=== PATIENT | female | born 1980 | race Caucasian/White ===

== ENCOUNTER 2019-11-22 17:59 | Observation (INO) | payer OTHER, SELFPAY ==
--- NOTE | ~2019-11-22 | CT_ITS ---
EXAMINATION: CT abdomen pelvis w con INDICATION: Right lower quadrant abdominal pain, prior hysterectomy for endometriosis TECHNIQUE: Computed tomographic images of the abdomen and pelvis were obtained after the administrati on of 100 cc of Omnipaque 350 intravenous contrast. The dose-length product (DLP) was 510.99 mGy-cm. Automated exposure control and iterative reconstruction technique were employed. COMPARISON: 01/28/2015 FINDINGS: The lung bases are clear. The heart size is normal. Punctate calcifications in an otherwise normal spleen likely represent healed granulomatous disease. The liver, pancreas, gallbladder, and a drenal glands are normal. There is chronic severe atrophy of the right kidney with severe right hydro ureteronephrosis which continues to the level of the right adnexa. There is moderate left hydroureter onephrosis which continues to the level of the left adnexa. There is mild distention of the urinary b ladder. There is a 4.8 x 4.1 cm heterogeneous soft tissue density mass in the pelvis at the hysterect del site. The distended ureters are contiguous with the lateral aspects of the soft tissue density ma ss. An approximately 2.5 x 2.3 cm soft tissue density is seen in the right adnexa adjacent to calcifi cation or suture material. There is mild enlargement of the appendix, which measures up to 8 mm, with out significant periappendiceal fat stranding. A 1.4 x 0.7 cm soft tissue density is seen along the r ight pericolic gutter on image 115. No pathologically enlarged abdominal or pelvic lymph nodes are id entified. There is no free intraperitoneal gas or evidence of bowel obstruction. IMPRESSION: 1. Soft tissue density mass of the pelvis and adnexa at the site of prior hysterectomy suspicious for endometriosis. 2. Bilateral hydroureteronephrosis, severe on the right and moderate on the left, continuing to the l evel of the pelvic mass, concerning for involvement by the pelvic mass. Surgical consultation is raul mmended. 3. Mild enlargement of the appendix without significant periappendiceal fat stranding. Acute appendic itis is considered less likely. These findings and recommendations were discussed with Dr. Tosha sugn MD in the Emergency Department at 2322 hours on 11/22/2019. 4. Small soft tissue deposit along the right pericolic gutter which could also reflect endometriosis if the pelvic mass proves to be endometriosis. Reviewed, dictated and finalized at location A. IMPRESSION: 1. Soft tissue density mass of the pelvis and adnexa at the site of prior hyste rectomy suspicious for endometriosis. 2. Bilateral hydroureteronephrosis, severe on the right and moderate on the lef t, continuing to the level of the pelvic mass, concerning for involvement by th e pelvic mass. Surgical consultation is recommended. 3. Mild enlargement of the appendix without significant periappendiceal fat str anding. Acute appendicitis is considered less likely. These findings and recomm endations were discussed with Dr. Tosha Dahl MD in the Emergency Department at 2322 hours on 11/22/2019. 4. Small soft tissue deposit along the right pericolic gutter which could also reflect endometriosis if the pelvic mass proves to be endometriosis.
--- NOTE | ~2019-11-22 | US_ITS ---
EXAMINATION: US pelvic complete w TV DATE: 11/23/2019 16:22 INDICATION: Pelvic pain, vaginal bleeding, pelvic mass on CT, history of hysterectomy and bilateral o ophorectomy for endometriosis TECHNIQUE: Multiple transabdominal and endovaginal sonographic images of the pelvis were obtained. COMPARISON: CT from yesterday FINDINGS: The uterus and ovaries are surgically absent. There is a 6.2 x 5.1 x 5.2 cm hypoechoic mass in association with the vaginal cuff. A 3.4 x 3.9 x 2.6 cm heterogeneous mass is seen in the right a dnexa corresponding to the adnexal finding on CT. There is increased vascularity in the masses. As se en on CT, the ureters appear to course into the adnexa and abruptly cut off. There is no free fluid i n the pelvis. IMPRESSION: 1. Pelvic and right adnexal masses as seen on CT, concerning for endometriosis. Reviewed, dictated and finalized at location A.
--- NOTE | ~2019-11-22 | NM_ITS ---
EXAMINATION: YAIMA starkey renal scan DATE: 11/24/2019 12:20 INDICATION: Assess bilateral renal function. TECHNIQUE: 8 mCi Tc-99m MAG3 was administered IV. 40 mg furosemide was administered IV immediately a fterward. The patient was scanned in the supine position. A posterior abdominal radionuclide angiogra m was obtained. A subsequent time course of static images of the kidneys, ureters, and bladder was ob tained. COMPARISON: None FINDINGS: The posterior abdominal radionuclide angiogram and sequential static images show normal size, positio n, and morphology of the left kidney. Atrophic small right kidney. Peak renal parenchymal uptake was 2.5 min in left kidney and 1 min in right kidney (normal peak 3-5 minutes). The relative early renal uptake was 4% on the right and 66% on the left (<40% is abnormal). No abnormalities of the ureters or bladder are seen. T1/2 for clearance of activity from the left kidney and proximal collecting system was 9 minutes. No evident clearance of activity from the right kidney with essentially flat activity curve throughou t the entire 30 minutes of the study. No evident accumulation of activity at the right renal pelvis Notes on interpretation: T1/2 <10 minutes is normal, 10-15 minutes is low grade obstruction of questi onable clinical significance, 15-20 minutes is partial obstruction that is likely clinically signific ant, >20 minutes is high grade obstruction. Note that false positives may be seen with supine positio rohith, dehydration, severely dilated nonobstructed kidney, atonic collecting system, poor renal functi on, and chronic furosemide use. IMPRESSION: 1. Severely atrophic right kidney which only contributes 4% of total renal function. Assessment for severity of obstruction is nondiagnostic due to the negligible renal uptake. 2. Normal-appearing left kidney which comprises 96% of total renal function with no delay in activity clearance to suggest significant obstruction. Reviewed, dictated and finalized at location A. IMPRESSION: 1. Severely atrophic right kidney which only contributes 4% of total renal fun ction. Assessment for severity of obstruction is nondiagnostic due to the negli gible renal uptake. 2. Normal-appearing left kidney which comprises 96% of total renal function wit h no delay in activity clearance to suggest significant obstruction.
[2019-11-22 19:20] VITALS: BP 145/90; PULSE 80; RESP 16; TEMP 37.1; O2SAT 100
[2019-11-22 19:44] LABS: Basophils Percent Auto 0.2 % (0.2-1.2); Eosinophils Absolute Auto 0.1 K/mm3 (0-0.3); Eosinophils Percent Auto 0.9 % (0-4.4); Hematocrit 44.3 % (37.0-47.0); Hemoglobin 14.9 g/dL (12.0-15.0); Immature Granulocyte Absolute 0.06 K/mm3 (0.00-0.031); Immature Granulocyte Percent A 0.4 % (0-0.5); Lymphocytes Absolute Auto 1.72 K/mm3 (0.9-3.2); Mean Corpuscular HGB Conc 33.6 g/dl (32-36); Mean Corpuscular Hemoglobin 30.9 pg (26-34); Mean Corpuscular Volume 91.9 fl (80-100); Mean Platelet Volume 10.1 fl (7.4-10.4); Monocytes Absolute Auto 0.5 K/mm3 (0.1-0.6); Monocytes Percent Auto 3.8 % (2.6-8.5); Neutrophils Absolute Auto 11.9 K/mm3 (1.3-6.7); Neutrophils Percent Auto 82.7 % (45.5-73.1); Platelet Count Result 326 k/mm3 (150-375); Red Blood Count 4.82 M/mm3 (4.2-5.4); Red Cell Distribution Width 12.6 % (11.5-14.5); White Blood Count 14.4 K/mm3 (4.5-10.0)
[2019-11-22 19:48] LABS: Add Urine Microscopic? YES; Appearance Urine Clear (Clear); Bilirubin Urine Negative (Negative); Blood Urine 1+ (Negative); Color Urine Straw (Yellow); Glucose Urine UA Negative (Negative); Ketones Urine Negative (Negative); Leukocyte Esterase Ur Negative LEU/UL (Negative); Mucus Urine Rare /lpf; Nitrate Urine Negative (Negative); Protein Urine 1+ mg/dL (Negative); Specific Grav Ur 1.011 (1.001-1.035); Squamous Epithelial Cell Urine Rare /hpf (Few); Urobilinogen Urine Negative mg/dL (<2.0); WBC Urine 0-3 /hpf
[2019-11-22 20:12] LABS: Alanine Aminotransferase 17 U/L (4-35); Albumin Level 4.3 g/dL (3.5-5.1); Alkaline Phosphatase 88 U/L (38-126); Aspartate Amino Transferase 25 U/L (14-36); Bilirubin,Total 0.3 mg/dL (0.2-1.3); Blood Urea Nitrogen 13 mg/dL (7-17); Calcium 8.9 mg/dL (8.4-10.2); Carbon Dioxide 26 mmol/L (22-30); Chloride 102 mmol/L (98-107); Estimated CRCL calculation 45 ml/min; Estimated Glomerular Filt Rate 39; Glucose 98 mg/dL (65-105); Lipase 133 U/L (23-300); Potassium 4.6 mmol/L (3.4-5.0); Sodium 137 mmol/L (137-145)
[2019-11-22 22:18] VITALS: BP 145/103; PULSE 83; RESP 16; TEMP 36.6; O2SAT 99
--- NOTE | 2019-11-22 22:33 | ED.GENADULT ---
HPI - General Adult General Chief complaint: Abdominal Pain Stated complaint: ABD PAIN Time Seen by Provider: 11/22/19 22:19 History of Present Illness HPI narrative: Patient is a 39 y/o female complaining of right lower abdominal pain radiating to back pain since yesterday. She states that her pain is sharp and rates it as 6/10. There is no alleviating or exacerbating factor. She has some nausea. She has no dysuria, vomiting or diarrhea. Of note, she had hysterectomy and bilateral oophorectomy in 2007 for endometriosis. Related Data Home Medications Medication Instructions Recorded Confirmed atomoxetine 100 mg PO DAILY 11/23/19 11/23/19 bupropion HCl 150 mg PO DAILY 11/23/19 11/23/19 estrogens-methyltestosterone 1 tablet PO DAILY 11/23/19 11/23/19 isotretinoin, micronized [Absorica 8 mg PO DAILY 11/23/19 11/23/19 LD] lisinopril 40 mg PO DAILY 11/23/19 11/23/19 Allergies Allergy/AdvReac Type Severity Reaction Status Date / Time codeine Allergy Unknown Verified 10/12/12 10:26 Sulfa (Sulfonamide Allergy Unknown Verified 10/12/12 10:26 Antibiotics) sulfanilamide Allergy Unknown Verified 11/08/09 10:04 Review of Systems Constitutional: Constitutional: Denies chills, Denies fever(s), Denies headache(s) and Denies weakness Eyes: Eyes: Denies blurry vision ENT: Denies headache(s) and Denies neck pain Cardiovascular: Cardiovascular: Denies chest pain and Denies dyspnea Respiratory: Respiratory: Denies cough and Denies dyspnea Gastrointestinal: Gastrointestinal: Reports abdominal pain, Denies diarrhea, Reports nausea and Denies vomiting Genitourinary: Genitourinary: Denies hematuria and Denies dysuria Musculoskeletal: Musculoskeletal: Denies back pain and Denies neck pain Neurologic: Denies headache(s) and Denies weakness [facility] Past Medical History Medical History (Updated 11/23/19 @ 06:50 by Tosha Dahl MD) Endometriosis Surgical History Surgical History (Updated 11/23/19 @ 06:49 by Tosha Dahl MD) History of hysterectomy Family History Family History (Updated 11/23/19 @ 00:34 by Channing Aguillon RN) Father Hypertension Mother Family history of malignant neoplasm Diabetes mellitus Multiple myeloma Hypertension TIA (transient ischemic attack) Grandparent Family history of lung cancer Family history of heart disease in male family member before age 55 Social History Social History Smoking status: Never smoker Smoking end date: 06/02/99 Alcohol intake: never Substance use: current Substance use type: marijuana Last use: 11/22/19 1600 Gender identity (if verbalized by the patient): Female Spiritual care concerns: No Exam Const: Orientation/consciousness: oriented to person, oriented to place, oriented to time and patient oriented x3 Neuro: General: oriented to person, oriented to place, oriented to time and patient oriented x3 Cranial nerves: Yes CN's II-XII intact bilaterally Cognition (Neuro): normal cognition Speech: normal speech Motor exam (neuro): 5/5 motor strength present throughout Sensory Exam: normal sensation Coordination: [id number] test normal and [id number] test normal Course Consultations Consultation #1: Discussed with Dr. Morales ([facility] Support Specialist), who agrees to admit. Date: 11/22/19 Time: 23:30 Vital Signs Vital signs: Vital Signs Temperature 37.1 C 11/22/19 19:20 Pulse Rate 80 11/22/19 19:20 Respiratory Rate 16 11/22/19 19:20 Blood Pressure 145/90 H 11/22/19 19:20 Pulse Oximetry 100 11/22/19 19:20 Temperature 36.9 C 11/23/19 05:00 Pulse Rate 81 11/23/19 05:00 Respiratory Rate 16 11/23/19 05:00 Blood Pressure 144/102 H 11/23/19 05:00 Pulse Oximetry 98 11/23/19 05:00 Medical Decision Making Vital Signs Vital Signs: Vital Signs Temperature 37.1 C 11/22/19 19:20 Pulse Rate 80 11/22/19 19:20 Respiratory Rate 16 11/22/19 19:2
[2019-11-22] MEDS: KETOROLAC 30 MG/ML VIAL (*BKC) IV PUSH (23:02)
[2019-11-22 23:32] VITALS: TEMP 36.8
[2019-11-22 23:50] VITALS: BP 147/97; PULSE 79; RESP 18; TEMP 36.8; O2SAT 100
[2019-11-23 00:15] VITALS: BP 157/99; PULSE 84; RESP 16; TEMP 36.8; O2SAT 99; BMI 24.9
--- NOTE | 2019-11-23 00:32 | ADMGEN ---
This patient, Jessica Hernandez, was admitted to 3 [facility] Surg Room 302-01. Patient/family oriented to hospital policies and general routines including ID bracelet, bed and alarms, visiting hours, pain management, procedures, bathroom and other care routines, personal items, smoking policy, room service/diet, and visiting hours. Valuables list has been completed. Information on how to activate the Rapid Response Team has been discussed. Patient/Family are encouraged to report perceived risks to care and to ask questions if they do not understand what they are told or what they should do.
[2019-11-23] MEDS: SODIUM CHLORIDE 0.9% IV 1,000 ML 125 ML IV CONT ×3 (00:43→16:52)
[2019-11-23] MEDS: KETOROLAC 15 MG/ML VIAL (*BKC) IV PUSH ×3 (04:44→18:16)
[2019-11-23 05:00] VITALS: BP 144/102; PULSE 81; RESP 16; TEMP 36.9; O2SAT 98
[2019-11-23 06:32] LABS: Basophils Percent Auto 0.3 % (0.2-1.2); Eosinophils Absolute Auto 0.3 K/mm3 (0-0.3); Eosinophils Percent Auto 2.1 % (0-4.4); Hematocrit 41.2 % (37.0-47.0); Hemoglobin 13.9 g/dL (12.0-15.0); Immature Granulocyte Absolute 0.04 K/mm3 (0.00-0.031); Immature Granulocyte Percent A 0.3 % (0-0.5); Lymphocytes Absolute Auto 2.12 K/mm3 (0.9-3.2); Mean Corpuscular HGB Conc 33.7 g/dl (32-36); Mean Corpuscular Hemoglobin 30.7 pg (26-34); Mean Corpuscular Volume 90.9 fl (80-100); Mean Platelet Volume 10.1 fl (7.4-10.4); Monocytes Absolute Auto 0.8 K/mm3 (0.1-0.6); Monocytes Percent Auto 6.5 % (2.6-8.5); Neutrophils Absolute Auto 8.5 K/mm3 (1.3-6.7); Neutrophils Percent Auto 72.8 % (45.5-73.1); Platelet Count Result 267 k/mm3 (150-375); Red Blood Count 4.53 M/mm3 (4.2-5.4); Red Cell Distribution Width 12.5 % (11.5-14.5); White Blood Count 11.8 K/mm3 (4.5-10.0)
--- NOTE | 2019-11-23 07:35 | PM.IMHP ---
H&P: HPI History of Present Illness Chief complaint: pelvic pain, hydroephrosis Narrative: Jessica Hernandez is a 39 year old female Admitted through the emergency department complaining of several days right lower quadrant pelvic pain. significantly she has a history of hysterectomy and bilateral salpingo-oophorectomy approximately 12 years ago. She has been on hormone replacement. She has had recurrent UTIs and has had stents placed in the past. CT scan shows some small mass in the pelvis near the ureter with hydronephrosis on the right and minimal hydronephrosis on the left. Her white count is mildly elevated although she is afebrile. She is admitted to deal with this pain and workup these masses I have ordered ultrasound and have made a consult with Urology for possible placement of stents. Review of Systems Review of Systems: All systems reviewed & are unremarkable except as noted in HPI and below PMFSH Past Medical History Medical History Endometriosis Surgical History Surgical History History of hysterectomy Family History Family History Father Hypertension Mother Family history of malignant neoplasm Diabetes mellitus Multiple myeloma Hypertension TIA (transient ischemic attack) Grandparent Family history of lung cancer Family history of heart disease in male family member before age 55 Social History Social History Smoking status: Never smoker Smoking end date: 06/02/99 Alcohol intake: never Substance use: current Substance use type: marijuana Last use: 11/22/19 1600 Gender identity (if verbalized by the patient): Female Spiritual care concerns: No Meds Home Medications and Allergies Home Medications Medication Instructions Recorded Confirmed Type atomoxetine 100 mg PO DAILY 11/23/19 11/23/19 History bupropion HCl 150 mg PO DAILY 11/23/19 11/23/19 History estrogens-methyltestosterone 1 tablet PO DAILY 11/23/19 11/23/19 History isotretinoin, micronized [Absorica 8 mg PO DAILY 11/23/19 11/23/19 History LD] lisinopril 40 mg PO DAILY 11/23/19 11/23/19 History Allergies Allergy/AdvReac Type Severity Reaction Status Date / Time codeine Allergy Unknown Verified 10/12/12 10:26 Sulfa (Sulfonamide Allergy Unknown Verified 10/12/12 10:26 Antibiotics) sulfanilamide Allergy Unknown Verified 11/08/09 10:04 Vital Signs Vital Signs - 24 hr 11/22/19 19:20 11/22/19 22:18 11/22/19 23:32 Temperature 98.7 F 97.8 F 98.2 F Pulse Rate 80 83 Respiratory Rate 16 16 Blood Pressure 145/90 H 145/103 H Pulse Oximetry 100 99 11/22/19 23:50 11/23/19 00:15 11/23/19 05:00 Temperature 98.2 F 98.2 F 98.5 F Pulse Rate 79 84 81 Respiratory Rate 18 16 16 Blood Pressure 147/97 H 157/99 H 144/102 H Pulse Oximetry 100 99 98 Exam Const: General: no acute distress Eyes: General: appearance normal, both eyes and all related structures Neck: Neck: supple and no JVD Thyroid: thyroid normal Resp: Effort & Inspection: normal respiratory effort Auscultation: clear to auscultation bilaterally Cardio: Rate: regular rate Rhythm: regular rhythm GI: GI Palp: Yes abdominal tenderness Auscultation: normal bowel sounds Rectal Exam: deferred : External Female Exam: normal external appearance Speculum Exam - Cervix: Cervix absent Bimanual exam- vagina & uterus: uterus absent Bimanual Exam- Adnexa, other: tender bilaterally Skin: General skin exam: no rashes or lesions noted Extrem: General: normal to inspection and no edema Psych: Mental Status: mental status grossly normal Affect: normal affect H&P: Results Labs Labs: Short CBC 11/22/19 11/23/19 Range/Units 19:27 05:52 WBC 14.4 H 11.8 H (4.5-10.0) K/mm3 Hgb 14.9 13.9 (12.0-
--- NOTE | 2019-11-23 07:39 | PM.IMHP ---
H&P: HPI History of Present Illness Chief complaint: pelvic pain, hydroephrosis Narrative: Jessica Hernandez is a [address] [facility] Past Medical History Medical History (Updated 11/24/19 @ 17:43 by Arthur Mcfadden MD) Anxiety Attention deficit disorder Endometriosis HTN (hypertension) Surgical History Surgical History History of hysterectomy Family History Family History Father Hypertension Mother Family history of malignant neoplasm Diabetes mellitus Multiple myeloma Hypertension TIA (transient ischemic attack) Grandparent Family history of lung cancer Family history of heart disease in male family member before age 55 Social History Social History Smoking status: Never smoker Smoking end date: 06/02/99 Alcohol intake: never Substance use: current Substance use type: marijuana Last use: 11/22/19 1600 Gender identity (if verbalized by the patient): Female Spiritual care concerns: No Meds Home Medications and Allergies Home Medications Medication Instructions Recorded Confirmed Type atomoxetine 100 mg PO DAILY 11/23/19 11/23/19 History bupropion HCl 150 mg PO DAILY 11/23/19 11/23/19 History estrogens-methyltestosterone 1 tablet PO DAILY 11/23/19 11/23/19 History isotretinoin, micronized [Absorica 8 mg PO DAILY 11/23/19 11/23/19 History LD] lisinopril 40 mg PO DAILY 11/23/19 11/23/19 History Allergies Allergy/AdvReac Type Severity Reaction Status Date / Time codeine Allergy Unknown Verified 10/12/12 10:26 Sulfa (Sulfonamide Allergy Unknown Verified 10/12/12 10:26 Antibiotics) sulfanilamide Allergy Unknown Verified 11/08/09 10:04 Vital Signs Vital Signs - 24 hr 11/22/19 19:20 11/22/19 22:18 11/22/19 23:32 Temperature 98.7 F 97.8 F 98.2 F Pulse Rate 80 83 Respiratory Rate 16 16 Blood Pressure 145/90 H 145/103 H Pulse Oximetry 100 99 11/22/19 23:50 11/23/19 00:15 11/23/19 05:00 Temperature 98.2 F 98.2 F 98.5 F Pulse Rate 79 84 81 Respiratory Rate 18 16 16 Blood Pressure 147/97 H 157/99 H 144/102 H Pulse Oximetry 100 99 98 H&P: Results Labs Labs: Short CBC 11/22/19 11/23/19 Range/Units 19:27 05:52 WBC 14.4 H 11.8 H (4.5-10.0) K/mm3 Hgb 14.9 13.9 (12.0-15.0) g/dL Hct 44.3 41.2 (37.0-47.0) % Plt Count 326 267 (150-375) k/mm3 BMP 11/22/19 19:27 Sodium 137 Potassium 4.6 Chloride 102 Carbon Dioxide 26 BUN 13 Creatinine 1.50 H Glucose 98 Calcium 8.9 Liver Function 11/22/19 Range/Units 19:27 Total Bilirubin 0.3 (0.2-1.3) mg/dL AST 25 (14-36) U/L ALT 17 (4-35) U/L Alkaline Phosphatase 88 (38-126) U/L Albumin 4.3 (3.5-5.1) g/dL Urine 11/22/19 Range/Units 19:27 Urine Color Straw (Yellow) Urine Appearance Clear (Clear) Urine pH 6.0 (5.0-9.0) Ur Specific [place] 1.011 (1.001-1.035) Urine Protein 1+ H (Negative) mg/dL Urine Glucose (UA) Negative (Negative) mg/dL
--- NOTE | 2019-11-23 13:04 | WPDURCON ---
Assessment and Plan Assessment and plan (1) Hydronephrosis: Qualifiers: Hydronephrosis type: unspecified Qualified Code(s): N13.30 - Unspecified hydronephrosis Code(s): N13.30 - Unspecified hydronephrosis Status: Acute Assessment and Plan: Obtain Consent: Cystoscopy, bilateral retrograde pyelogram, bilateral ureteral stents will be placed tomorrow by Dr. Jorgito Guerra at 4:30pm in the OR. Keep NPO after midnight. Likely related to endometriosis. (2) Microhematuria: Code(s): R31.29 - Other microscopic hematuria Status: Acute Assessment and Plan: Patient is on Ceftriaxone, therefore a culture would likely be negative, but will send one to ensure this is not a UTI and that she is on correct antibiotics if so. Urology Consult Note HPI Date Seen: 11/23/19 Requesting Physician: Larry Morales MD Primary Care Provider: PHYSICIAN NOT ON STAFF Consult Narrative Narrative: Jessica Hernandez is a 39 year old female who was admitted through the ER for worsening right lower quadrant pain that started on Friday. She has a WBC 11.8 down from 14.4, creatinine is 1.50, UA shows 1+ blood, but no urine culture was done. She had a total hysterectomy 12 years ago and has been on hormonal replacement. She is also noted to have chronic UTI's and previous stent placement with Dr. Ronquillo. CT scan with contrast was done showing a soft tissue mass of pelvis at the site of her prior hysterectomy suspicious for endometriosis, bilateral hydronephrosis, sever on the right and moderate on the left contributing to pelvic mass concerning for involvement by pelvic mass. She also states she had some minor gross hematuria, vaginal bleeding, flank pain worse on the right and pelvic pain. Review of Systems Cardiovascular: Cardiovascular: Denies chest pain Respiratory: Respiratory: Reports no additional respiratory complaints Gastrointestinal: Gastrointestinal: Reports abdominal pain, Reports nausea and Denies vomiting Genitourinary: Genitourinary: Reports abnormal vaginal bleeding, Reports hot flashes, Denies dysuria, Reports pelvic pain, Reports flank pain and Denies urinary urgency PMFSH Past Medical History Medical History Endometriosis Surgical History Surgical History History of hysterectomy Family History Family History Father Hypertension Mother Family history of malignant neoplasm Diabetes mellitus Multiple myeloma Hypertension TIA (transient ischemic attack) Grandparent Family history of lung cancer Family history of heart disease in male family member before age 55 Social History Social History Smoking status: Never smoker Smoking end date: 06/02/99 Alcohol intake: never Substance use: current Substance use type: marijuana Last use: 11/22/19 1600 Gender identity (if verbalized by the patient): Female Spiritual care concerns: No Meds Home Medications and Allergies Home Medications Medication Instructions Recorded Confirmed Type atomoxetine 100 mg PO DAILY 11/23/19 11/23/19 History bupropion HCl 150 mg PO DAILY 11/23/19 11/23/19 History estrogens-methyltestosterone 1 tablet PO DAILY 11/23/19 11/23/19 History isotretinoin, micronized [Absorica 8 mg PO DAILY 11/23/19 11/23/19 History LD] lisinopril 40 mg PO DAILY 11/23/19 11/23/19 History Allergies Allergy/AdvReac Type Severity Reaction Status Date / Time codeine Allergy Unknown Verified 10/12/12 10:26 Sulfa (Sulfonamide Allergy Unknown Verified 10/12/12 10:26 Antibiotics) sulfanilamide Allergy Unknown Verified 11/08/09 10:04 Vital Signs Vital Signs - 24 hr 11/22/19 19:20 11/22/19 22:18 11/22/19 23:32 Temperature 98.7 F 97.8 F 98.2 F Pulse Rate
[2019-11-23 14:00] VITALS: BP 141/93; PULSE 60; RESP 16; TEMP 36.5; O2SAT 97
[2019-11-23 22:00] VITALS: BP 147/88; PULSE 100; RESP 18; TEMP 36.8; O2SAT 98
[2019-11-24] MEDS: SODIUM CHLORIDE 0.9% IV 1,000 ML 125 ML IV CONT ×3 (00:53→20:46)
[2019-11-24] MEDS: FUROSEMIDE INJ 40 MG/4 ML VIAL IV PUSH ×2 (00:57→11:04)
[2019-11-24] MEDS: KETOROLAC 15 MG/ML VIAL (*BKC) IV PUSH ×2 (02:32→18:36)
[2019-11-24 06:00] VITALS: BP 129/88; PULSE 63; RESP 16; TEMP 36.7; O2SAT 94
--- NOTE | 2019-11-24 09:27 | WPDANESEPPF ---
Anes - Initial Pre Proc Eval Procedure: Operation Date: 11/24/19 16:00 Proposed Procedures p Cystoscopy, Bilateral Retrogrde Pyelogram, Bilateral Stent Placement - Jorgito Guerra MD Date/Time: 11/24/19 09:27 Surgeon: Larry Morales MD Pre Op Diagnosis: pelvic pain, hydroephrosis Patient Data Age: 39 Gender: F Height: 1.7 m Weight: 72.2 kg Last Vital Signs Temp 36.7 C 11/24/19 06:00 Pulse 63 11/24/19 06:00 Resp 16 11/24/19 06:00 BP 129/88 11/24/19 06:00 Pulse Ox 94 11/24/19 06:00 Allergies Allergy/AdvReac Type Severity Reaction Status Date / Time codeine Allergy Unknown Verified 10/12/12 10:26 Sulfa (Sulfonamide Allergy Unknown Verified 10/12/12 10:26 Antibiotics) sulfanilamide Allergy Unknown Verified 11/08/09 10:04 Home Medications Medication Instructions Recorded Confirmed Type atomoxetine 100 mg PO DAILY 11/23/19 11/23/19 History bupropion HCl 150 mg PO DAILY 11/23/19 11/23/19 History estrogens-methyltestosterone 1 tablet PO DAILY 11/23/19 11/23/19 History isotretinoin, micronized [Absorica 8 mg PO DAILY 11/23/19 11/23/19 History LD] lisinopril 40 mg PO DAILY 11/23/19 11/23/19 History PMFSH Past Medical History Medical History (Updated 11/24/19 @ 09:28 by Mirza Ohara MD) Anxiety Attention deficit disorder Endometriosis HTN (hypertension) Surgical History Surgical History History of hysterectomy Family History Family History Father Hypertension Mother Family history of malignant neoplasm Diabetes mellitus Multiple myeloma Hypertension TIA (transient ischemic attack) Grandparent Family history of lung cancer Family history of heart disease in male family member before age 55 Social History Social History Smoking status: Never smoker Smoking end date: 06/02/99 Alcohol intake: never Substance use: current Substance use type: marijuana Last use: 11/22/19 1600 Gender identity (if verbalized by the patient): Female Spiritual care concerns: No Anes - Eval Final PreProcedure Day of Procedure 11/24/19 09:27 Patient weight: normal Heart: regular rate and rhythm Lungs: clear to auscultation and normal air movement Airway: Mallampati scale class II Neurological: alert and oriented Last oral intake: >/= 8 hours ASA classification: II Emergent: no Anesthetic plan: proceed Anesthesia type and monitoring: general LMA Informed Consent: The patient's anesthetic plan and its attendant risks and benefits were discussed with the patient/family/POA. Questions were solicited and answers provided to the satisfaction of the patient/family/POA.
[2019-11-24 14:00] VITALS: BP 130/90; PULSE 78; RESP 16; TEMP 36.4; O2SAT 100
[2019-11-24 15:25] VITALS: BP 149/77; PULSE 79; RESP 12; TEMP 36.6; O2SAT 100
--- NOTE | 2019-11-24 17:08 | WPDUROPN2 ---
Progress Note: A&P Additional Plan 39 yo F with pelvic mass, bilateral hydronephrosis. Pt has an atrophic right kidney since at least 2014 - Lasix Renal Scan today showing only 4% function of right kidney. Left 96% function with no obstruction (T1/2 9 minutes) - Creatinine stable at baseline of 1.5. Consultation from Nephrology, Dr. Willams - As pain has resolved and no obstruction see in solitary functioning left kidney, will hold off on ureteral stent insertion at this time. - All questions answered and pt agrees with plan Subjective Subjective Date/Time Seen: 11/24/19 17:08 Exam Narrative: Exam Narrative: - pt states abdominal pain has resolved - has a headache Const: General: no acute distress Eyes: General: appearance normal, both eyes and all related structures Resp: Effort & Inspection: normal respiratory effort GI: Inspection: non-distended Other: soft nontender Skin: General skin exam: normal color Neuro: Speech: normal speech Objective Data Vital Signs Vital Signs: Vital Signs - 24 hr 11/23/19 22:00 11/24/19 06:00 11/24/19 14:00 Temperature 36.8 C 36.7 C 36.4 C L Pulse Rate 100 63 78 Respiratory Rate 18 16 16 Blood Pressure 147/88 H 129/88 130/90 Pulse Oximetry 98 94 100 11/24/19 15:25 Temperature 36.6 C Pulse Rate 79 Respiratory Rate 12 Blood Pressure 149/77 H Pulse Oximetry 100 Intake/Output Intake/Output: Intake & Output 11/21/19 11/22/19 11/23/19 11/24/19 23:59 23:59 23:59 23:59 Intake Total 3250 2600 Output Total 1650 2150 Balance 1600 450 Meds/Results Medications: Active Medications Generic Name Dose Route Start Last Admin Trade Name Freq PRN Reason Stop Dose Admin Fentanyl Citrate 50 mcg 11/22/19 23:46 11/24/19 14:23 Sublimaze IV PUSH 50 mcg Q4H PRN Administration SEVERE PAIN Fentanyl Citrate 25 mcg 11/24/19 08:28 Sublimaze IV PUSH Q2M PRN Pain Hydromorphone HCl 0.25 mg 11/24/19 08:28 Dilaudid Inj IV PUSH Q5M PRN Pain Sodium Chloride 1,000 mls @ 125 mls/hr 11/22/19 23:35 11/24/19 09:02 Normal Saline Iv IV CONT 125 mls/hr .Q8H MACARENA Administration Ceftriaxone Sodium/Dextrose 1 gm in 50 mls @ 100 mls/hr 11/23/19 09:00 11/24/19 09:33 Rocephin 1 Gm/D5w 50 Ml IVPB Infused Q24H MACARENA Infusion Lactated Ringer's 1,000 mls @ 30 mls/hr 11/24/19 08:30 Lr - Lactated Ringers Iv IV CONT .Q24H MACARENA Lactated Ringer's 1,000 mls @ 30 mls/hr 11/24/19 08:30 Lr - Lactated Ringers Iv IV CONT .Q24H MACARENA Acetaminophen 1,000 mg in 100 mls @ 400 mls/hr 11/24/19 09:21 11/24/19 10:08 Ofirmev 1,000 Mg Ivpb IVPB 11/25/19 09:22 Infused Q6H PRN Infusion Pain Rated 4-6 Ketorolac Tromethamine 15 mg 11/22/19 23:35 11/24/19 02:32 Toradol Inj IV PUSH 15 mg Q6H PRN Administration Pain Rated 4-6 Ondansetron HCl 4 mg 11/24/19 08:28 Zofran Inj IV PUSH ONCE PRN Nausea Radiology Results: ITS Impressions Abdomen/Pelvis CT 11/22/19 22:57 IMPRESSION: 1. Soft tissue density mass of the pelvis and adnexa at the site of prior hysterectomy suspicious for endometriosis. 2. Bilateral hydroureteronephrosis, severe on the right and moderate on the left, continuing to the level of the pelvic mass, concerning for involvement by the pelvic mass. Surgical consultation is recommended. 3. Mild enlargement of the appendix without significant periappendiceal fat stranding. Acute appendicitis is considered less likely. These findings and recommendations were discussed with Dr. Tosha Dahl MD in the Emergency Department at 2322 hours on 11/22/2019. 4. Small soft tissue deposit along the right pericolic gutter which could also reflect endometriosis if the pelvic mass proves to be endometriosis. Pelvic/Transvag US 11/23/19 16:58 IMPRESSION: 1. Pelvic and right adnexal masses as seen on CT, concerning for endometriosis. Renal Scan w/Medication NM 11/01
--- NOTE | 2019-11-24 17:42 | PM.CNNEP ---
Assessment and Plan Assessment and plan (1) Chronic kidney disease, stage 3: Code(s): N18.3 - Chronic kidney disease, stage 3 (moderate) Status: Acute (2) Hydronephrosis: Qualifiers: Hydronephrosis type: unspecified Qualified Code(s): N13.30 - Unspecified hydronephrosis Code(s): N13.30 - Unspecified hydronephrosis Status: Acute Assessment and Plan: . Additional Plan Jessica has chronic kidney disease which appears to be stable by labs on admission to the hospital. Although I am unclear as to the exact etiology of her abdominal pain that led to her admission, I do not think her chronic bilateral hydronephrosis in association with right renal atrophy has anything to do with his condition. As I already mentioned previously, she has had chronic hydronephrosis since 2007 and her overall kidney function in that time has remained stable as well. Her recent nuclear medicine scan proves that her left kidney is doing majorityof the work and there appears to be adequate flow in function from this kidney. The patient seems to think that a combination of medications she is taking with regard to her hormone replacement therapy, acne medications, ...etc may be the culprit with regard to her abdominal pain but she is not entirely sure. However, as ready mentioned, her abdominal pain seems resolved on its own. From a renal perspective, no further intervention is required at this time and I believe she has a follow-up appointment scheduled with me the next week or two in the office for ongoing CKD management. I will continue follow patient with you while she remains hospitalized make further recommendations during her hospital course. Thank you for allowing me to participate in the care this patient. History of Present Illness Reason for Consult Consult date: 11/24/19 Reason for consult: chronic renal failure Chief Complaint Chief complaint: pelvic pain, hydroephrosis History of Present Illness Narrative: The patient is a 39 y/o female with a past medical history as outlined below who presented to [facility] ER with complaints of abdominal pain. The patient notes right sided lower abdominal pain described as a sharp sensation rated at 6/10 in severity with radiation to back pain that started the day before admission. She relates no alleviating or exacerbating factor but admits to some some nausea. She gives no symptoms of dysuria, hematuria, vomiting or diarrhea. Workup and evaluation in the emergency room demonstrated labs consistent with her known history of chronic kidney disease with no significant electrolyte disturbances. She did have a mild leukocytosis and a CT scan of the abdomen pelvis demonstrated a small right kidney and evidence of bilateral hydronephrosis with no evidence of nephrolithiasis But some concern about a possible pelvic mass. Given these findings, she was admitted the hospital for further evaluation and therapy. Renal consultation was requested due to her known history of chronic kidney disease. The patient has had some degree of renal insufficiency that dates back as far as 2007 secondary to her history of chronic obstruction. Since that time, her creatinine normally runs around 1.3-1.5 mg/dL. Imaging study in the last several years have consistently shown a small right kidney in association with mild hydronephrosis which, as already mentioned, is a chronic and known issue. However, these findings have not adversely impacted her kidney function given the relative stability in her creatinine for the last 10+ years. Since her admission she was seen in consultation by Urology with the tentative plan for ureteral stent placement but this has been canceled as her nuclear medicine study demonstrates reasonable function primarily in her left kidney. The abdominal pain that led to her admission has resolved. Currently, she appears to be in no acute distress at the time of
[2019-11-24 22:00] VITALS: BP 146/83; PULSE 83; RESP 18; TEMP 36.6; O2SAT 100
[2019-11-25] MEDS: SODIUM CHLORIDE 0.9% IV 1,000 ML 125 ML IV CONT (04:52)
[2019-11-25 06:00] VITALS: BP 139/87; PULSE 87; RESP 16; TEMP 36.7; O2SAT 100
--- NOTE | 2019-11-25 07:08 | P.PNOB_ITS ---
OB - PN: Subj Subjective Date/time seen: 11/25/19 07:08 Interval history: feeling better, renal and urology consults appreciated Patient comments: pain well controlled OB - PN: Obj Data Labs CBC & Chem 7: 11/23/19 05:52 11/22/19 19:27 Imaging Radiologist's impression: Impressions Renal Scan w/Medication NM 11/24/19 12:22 IMPRESSION: 1. Severely atrophic right kidney which only contributes 4% of total renal function. Assessment for severity of obstruction is nondiagnostic due to the negligible renal uptake. 2. Normal-appearing left kidney which comprises 96% of total renal function with no delay in activity clearance to suggest significant obstruction. OB - PN A/P Plan Plan: discharge home and follow up 6 weeks (1 week) Comments: pain improved Time Spent With Patient Time: Total time spent is greater than 50% in coordination of care (as docume nted) at patient's floor/unit and/or counseling patient: Time with patient: less than 15 minutes Review of Systems Review of Systems: All systems reviewed & are unremarkable except as noted in HPI and below Exam Const: General: no acute distress Eyes: General: appearance normal, both eyes and all related structures Neck: Neck: supple and no JVD Thyroid: thyroid normal Resp: Effort & Inspection: normal respiratory effort Auscultation: clear to auscultation bilaterally Cardio: Rate: regular rate Rhythm: regular rhythm GI: Inspection: non-distended GI Palp: Yes Soft to palpation, No Tenderness to palpation present (GI) and No Guarding due to palpation present (GI) Auscultation: normal bowel sounds : General: Yes bladder normal to palpation External Female Exam: normal external appearance Speculum Exam - Vagina: normal vaginal discharge and No vaginal bleeding Speculum Exam - Cervix: nontender Bimanual exam- vagina & uterus: bladder normal to palpation and No Cervical tenderness present OB/external & speculum: No vaginal bleeding Skin: General skin exam: no rashes or lesions noted Extrem: General: normal to inspection and no edema Psych: Mental Status: mental status grossly normal Affect: normal affect
--- NOTE | 2019-11-25 07:10 | PM.DS ---
DS: Admitting Diagnosis Admitting Diagnosis Admitting Diagnosis: Unspecified hydronephrosis pain pelvic mass ckd DS: Summary Time Spent with Patient Time attestation: Total time spent providing and/or coordinating discharge services: Exam Const: General: no acute distress Eyes: General: appearance normal, both eyes and all related structures Neck: Neck: supple and no JVD Thyroid: thyroid normal Resp: Effort & Inspection: normal respiratory effort Auscultation: clear to auscultation bilaterally Cardio: Rate: regular rate Rhythm: regular rhythm GI: Inspection: non-distended GI Palp: Yes Soft to palpation, No Tenderness to palpation present (GI) and No Guarding due to palpation present (GI) Auscultation: normal bowel sounds : General: Yes bladder normal to palpation External Female Exam: normal external appearance Speculum Exam - Vagina: normal vaginal discharge and No vaginal bleeding Speculum Exam - Cervix: nontender Bimanual exam- vagina & uterus: bladder normal to palpation and No Cervical tenderness present OB/external & speculum: No vaginal bleeding Skin: General skin exam: no rashes or lesions noted Extrem: General: normal to inspection and no edema Psych: Mental Status: mental status grossly normal Affect: normal affect Discharge Plan Discharge Attending physician on discharge: Larry Morales Consulting providers: Dickson Coreas ; Arthur Mcfadden Discharging Clinician: Rene Carlisle Patient Disposition: Home, Self-Care Activity: may shower, no straining, as tolerated and pelvic rest Diet: heart healthy Wound Care Instructions: follow printed instructions Patient Instructions: Pain Management (DC), Pelvic Pain in Women (DC), Hydronephrosis (DC), Antibiotic Form Stand Alone Forms: General Discharge Information Follow-up/Referrals: Rene Carlisle MD [Physician] - Discharge Medications: New hydrocodone-acetaminophen [[place]] 5-325 mg tablet 1 tablet PO Q4H PRN (Reason: pain) Qty: 20 RF: 0 No Action bupropion HCl 150 mg tablet sustained-release 12 hr 150 mg PO DAILY RF: 0 estrogens-methyltestosterone 1.25-2.5 mg tablet 1 tablet PO DAILY RF: 0 lisinopril 40 mg Tablet 40 mg PO DAILY RF: 0 atomoxetine 100 mg capsule 100 mg PO DAILY RF: 0 Absorica LD 8 mg capsule 8 mg PO DAILY RF: 0 Date of admission: 11/22/19 23:35 Primary Care Provider: PHYSICIAN NOT ON STAFF,NONSTAFF Admitting Provider: Larry Morales Attending physician on admission: Larry Morales Condition: Stable
--- NOTE | 2019-11-25 09:43 | WPDANESPN ---
Anes - Prog Note Post-Op Date/Time: 11/25/19 09:43 Cardiovascular status: normal Respiratory status: normal Airway patency: baseline Mental status: baseline Post-Op hydration status: normal Vital Signs: Last Vital Signs Temp 36.7 C 11/25/19 06:00 Pulse 87 11/25/19 06:00 Resp 16 11/25/19 06:00 BP 139/87 11/25/19 06:00 Pulse Ox 100 11/25/19 06:00 I/O: Intake & Output 11/24/19 11/25/19 11/25/19 23:59 07:59 15:59 Intake Total 1360 1450 Output Total 1750 1000 Balance -390 450 Laboratory Tests 11/23/19 05:52 11/22/19 19:27 Microbiology 11/23/19 13:47 Urine Clean Catch Urine Culture - Final Post-procedural complaints: none Patient Feedback: Patient satisfied with anesthetic care.
== END 2019-11-25 11:30 | disposition home or self-care (01) ==
LOC: ANHED 23:40 → ANH3MEDSUR 11-23 12:23
PROVIDERS: Emergency Medicine; Admitting Provider Student in an Organized Health Care Education/Training Program; Emergency Provider Emergency Medicine; Visit Provider Obstetrics & Gynecology
DX: N13.30 Unspecified hydronephrosis (principal); R19.00 Intra-abdominal and pelvic swelling, mass and lump, unspecified site; R31.29 Other microscopic hematuria; D72.829 Elevated white blood cell count, unspecified; I12.9 Hypertensive chronic kidney disease with stage 1 through stage 4 chronic kidney disease, or unspecified chronic kidney disease; N18.3 Chronic kidney disease, stage 3 (moderate); Z90.710 Acquired absence of both cervix and uterus
CPT/HCPCS: 36415; 74177; 76830; 76856; 78708; 80053; 81001; 83690; 85025; 87086; 96361; 96365; 96374; 96375; 96376; 99285; A9270; A9562; G0378; J0131; J0696; J1885; J1940; J3010; J7030; Q9967

== ENCOUNTER 2020-12-04 18:35 | Emergency (ER) | payer OTHER, SELFPAY ==
--- NOTE | ~2020-12-04 | CT_ITS ---
EXAMINATION: CT abdomen pelvis w con DATE: 12/05/2020 00:48 INDICATION: Abdominal pain, constipation TECHNIQUE: Computed tomography (CT) of the abdomen and pelvis was performed with 100 cc Omnipaque 350 intravenous contrast. Automated exposure control and iterative reconstruction technique were employe d. Exam dose: 316.65 mGy-cm total exam DLP. COMPARISON: 11/22/2019 CT abdomen pelvis FINDINGS: The lung bases are clear of infiltrate or consolidation. Normal heart size. No pericardial or pleural effusion. The liver, gallbladder, bile ducts, spleen, pancreas and adrenal glands are unremarkable. There is severe right renal atrophy with minimal residual cortex and prominent right hydroureteroneph rosis, the ureter dilated down to an area of soft tissue density with calcification or possibly sutur es in the right pelvic area. Left renal scarring and approximately 5 mm left renal cyst. No left hydroureteronephrosis. The urinary bladder appears unremarkable. Normal caliber of the abdominal aorta. No intraperitoneal or retroperitoneal or pelvic mass lesion or adenopathy or ascites. No evidence of appendicitis. Fluid levels are noted in the right colon. There is a prominent amount o f fecal material in the colon. No apparent bowel obstruction, bowel wall thickening, pneumatosis or i ntraperitoneal free air. No evidence of appendicitis. Included skeletal structures are unremarkable. IMPRESSION: Persistent severe right renal atrophy and prominent right hydroureteronephrosis into the right pelvic area at an area of small soft tissue mass with calcifications or sutures. Left renal scarring, 5 mm left renal cyst Right colonic air-fluid levels, prominent of fecal material in the colon; no bowel obstruction Reviewed, dictated and finalized at [facility]. Reviewed, dictated and finalized at [facility]. IMPRESSION: Persistent severe right renal atrophy and prominent right hydroure teronephrosis into the right pelvic area at an area of small soft tissue mass w ith calcifications or sutures. Left renal scarring, 5 mm left renal cyst Right colonic air-fluid levels, prominent of fecal material in the colon; no jannette wel obstruction
[2020-12-04 19:31] VITALS: BP 131/84; PULSE 107; RESP 14; TEMP 36.6; O2SAT 100
[2020-12-04 20:05] LABS: Basophils Percent Auto 0.3 % (0.2-1.2); Eosinophils Absolute Auto 0.2 K/mm3 (0-0.3); Eosinophils Percent Auto 1.7 % (0-4.4); Hematocrit 44.2 % (37.0-47.0); Hemoglobin 14.5 g/dL (12.0-15.0); Immature Granulocyte Absolute 0.03 K/mm3 (0.00-0.031); Immature Granulocyte Percent A 0.3 % (0-0.5); Lymphocytes Percent Auto 22.2 % (18.3-44.2); Mean Corpuscular HGB Conc 32.8 g/dl (32-36); Mean Corpuscular Hemoglobin 31.1 pg (26-34); Mean Corpuscular Volume 94.8 fl (80-100); Mean Platelet Volume 9.3 fl (7.4-10.4); Monocytes Absolute Auto 0.5 K/mm3 (0.1-0.6); Monocytes Percent Auto 5.1 % (2.6-8.5); Neutrophils Absolute Auto 6.7 K/mm3 (1.3-6.7); Neutrophils Percent Auto 70.4 % (45.5-73.1); Platelet Count Result 314 k/mm3 (150-375); Red Blood Count 4.66 M/mm3 (4.2-5.4); Red Cell Distribution Width 12.8 % (11.5-14.5); White Blood Count 9.5 K/mm3 (4.5-10.0)
--- NOTE | 2020-12-04 20:10 | PC.NURSE ---
lab, Antoine, asked to run UA and UC off [facility]'ed urine tubes sent down with blood 2005
[2020-12-04 20:15] LABS: Alanine Aminotransferase 16 U/L (4-35); Albumin Level 4.1 g/dL (3.5-5.1); Alkaline Phosphatase 78 U/L (38-126); Anion Gap 9 mmol/L (8-16); Aspartate Amino Transferase 31 U/L (14-36); Bilirubin,Total 0.3 mg/dL (0.2-1.3); Blood Urea Nitrogen 14 mg/dL (7-17); Calcium 8.4 mg/dL (8.4-10.2); Carbon Dioxide 27 mmol/L (22-30); Chloride 103 mmol/L (98-107); Estimated CRCL calculation 41 ml/min; Estimated Glomerular Filt Rate 36; Glucose 76 mg/dL (65-105); Lipase 367 U/L (23-300); Potassium 3.7 mmol/L (3.4-5.0); Sodium 139 mmol/L (137-145)
[2020-12-04 20:18] LABS: Add Urine Microscopic? YES; Appearance Urine Clear (Clear); Bilirubin Urine Negative (Negative); Blood Urine Negative (Negative); Color Urine Yellow (Yellow); Glucose Urine UA Negative (Negative); Ketones Urine Negative (Negative); Leukocyte Esterase Ur Negative LEU/UL (Negative); Mucus Urine Rare /lpf; Nitrate Urine Negative (Negative); Protein Urine 2+ mg/dL (Negative); RBC Urine 0-2 /hpf (0-2); Specific Grav Ur 1.023 (1.001-1.035); Squamous Epithelial Cell Urine Rare /hpf (Few); WBC Urine 0-3 /hpf
[2020-12-04 21:40] VITALS: BP 150/106; PULSE 96; RESP 14; TEMP 36.9; O2SAT 99
[2020-12-05 00:15] VITALS: BP 158/118; PULSE 65; RESP 14; O2SAT 100
[2020-12-05] MEDS: SODIUM CHLORIDE 0.9% IV 1,000 ML 999 ML IV CONT (00:32)
[2020-12-05 00:33] VITALS: BP 154/111; PULSE 69; RESP 18; O2SAT 100
--- NOTE | 2020-12-05 01:01 | ED.ABDPAIN ---
HPI - Abdominal Pain General Chief Complaint: Abdominal Pain Stated Complaint: constipation Time Seen by Provider: 12/05/20 00:08 Source: patient and RN notes reviewed Mode of arrival: ambulatory Limitations: no limitations History of Present Illness HPI narrative: Patient is 40 years old white female presented to the ED with constipation and mid abdominal pain. Patient was told me that she have history of constipation for years and used to be on MiraLAX which is not working for the last 1 year. Patient also telling me that she lost 20 pounds over the last 6 months, a lot of intermittent nausea and vomiting patient had 3 enema in the last few days without any resolved. History of hysterectomy secondary to endometriosis. Patient does not have children. Does not smoke or drink but uses marijuana daily. Patient works as a [employer] Related Data Home Medications Medication Instructions Recorded Confirmed Absorica LD 8 mg PO DAILY 11/23/19 11/23/19 atomoxetine 100 mg PO DAILY 11/23/19 11/23/19 bupropion HCl 150 mg PO DAILY 11/23/19 11/23/19 estrogens-methyltestosterone 1 tablet PO DAILY 11/23/19 11/23/19 lisinopril 40 mg PO DAILY 11/23/19 11/23/19 Allergies Allergy/AdvReac Type Severity Reaction Status Date / Time codeine Allergy Unknown Nausea and Verified 12/05/20 01:12 Vomiting Sulfa (Sulfonamide Allergy Unknown Itching Verified 12/05/20 01:12 Antibiotics) sulfanilamide Allergy Unknown Itching Verified 12/05/20 01:12 Review of Systems Review of Systems: Narrative: CONSTITUTIONAL: Denies fever, chills, or sweats. EYES: Denies visual changes, redness, or discharge. ENT: Denies rhinorrhea, congestion, sore throat, or otalgia. CARDIOVASCULAR: Denies chest pain, palpitations, or edema. RESPIRATORY: Denies cough or dyspnea. GASTROINTESTINAL: Denies abdominal pain, nausea, vomiting, or diarrhea. GENITOURINARY: Denies dysuria or hematuria. SKIN: Denies rash or itching. MUSCULOSKELETAL: Denies back pain, joint pain, or myalgia. NEUROLOGIC: Denies headache, numbness, or weakness. PSYCHIATRIC: Denies anxiety or depression. [facility] Past Medical History Medical History Anxiety Attention deficit disorder Endometriosis HTN (hypertension) Surgical History Surgical History History of hysterectomy Family History Family History Father Hypertension Mother Family history of malignant neoplasm Diabetes mellitus Multiple myeloma Hypertension TIA (transient ischemic attack) Grandparent Family history of lung cancer Family history of heart disease in male family member before age 55 Social History Social History Smoking status: Never smoker Smoking end date: 06/02/99 Alcohol intake: never Substance use: current Substance use type: marijuana Last use: 11/22/19 1600 Gender identity (if verbalized by the patient): Female Spiritual care concerns: No Exam Narrative: Exam Narrative: General appearance: Well-developed, well-nourished Skin: Normal color Head: Normocephalic, nontraumatic Eyes: Clear conjunctiva ENT: Oropharynx normal, ears normal, nose normal Neck: Supple, nontender Chest and respiratory: Airway patent, no respiratory distress, no accessory muscle use Heart: Regular rate/rhythm Abdomen: Soft, nontender, no organomegaly, quiet bowel sounds Vascular: Normal peripheral pulses, normal capillary refill. Musculoskeletal: Normal range of motion, nontender back Neurologic: Alert and oriented ?3, [employer] is normal as tested, no gross motor deficit
[2020-12-05 02:10] VITALS: BP 147/80; PULSE 90; RESP 19; O2SAT 99
== END 2020-12-05 02:10 | disposition home or self-care (01) ==
LOC: ANHED 12-05 00:14
PROVIDERS: Emergency Provider Emergency Medicine; PCP Family Medicine
DX: K59.00 Constipation, unspecified (principal); F32.9 Major depressive disorder, single episode, unspecified; R10.84 Generalized abdominal pain; I10 Essential (primary) hypertension; F41.9 Anxiety disorder, unspecified; F90.9 Attention-deficit hyperactivity disorder, unspecified type
CPT/HCPCS: 36415; 74177; 80053; 81001; 81025; 83690; 85025; 96360; 99284; J7030; Q9967

== ENCOUNTER 2021-02-06 07:31 | Outpatient (CLI) | payer OTHER, SELFPAY ==
[2021-02-06 08:46] LABS: Creatinine Urine 48.8 mg/dL; Total Protein Urine Random 16 mg/dL; Ur Ttl Prot Creatinine Ratio 0.33 mg/mg (0-0.20)
[2021-02-06 08:51] LABS: Albumin Level 3.9 g/dL (3.5-5.1); Anion Gap 4 mmol/L (8-16); Blood Urea Nitrogen 18 mg/dL (7-17); Calcium 9.1 mg/dL (8.4-10.2); Carbon Dioxide 34 mmol/L (22-30); Chloride 99 mmol/L (98-107); Estimated Glomerular Filt Rate 33; Glucose 98 mg/dL (65-110); Phosphorus 2.3 mg/dL (2.5-4.5); Potassium 3.4 mmol/L (3.4-5.0); Sodium 137 mmol/L (137-145)
== END 2021-02-06 07:32 | disposition home or self-care (01) ==
PROVIDERS: PCP Family Medicine; Visit Provider Internal Medicine Nephrology
DX: N18.30 Chronic kidney disease, stage 3 unspecified (principal)
CPT/HCPCS: 36415; 80069; 82570; 84156

== ENCOUNTER 2021-03-12 11:50 | Observation (INO) | payer OTHER, SELFPAY ==
--- NOTE | ~2021-03-12 | CT_ITS ---
EXAMINATION: CT abdomen pelvis wo con DATE: 03/12/2021 17:07 INDICATION: Right flank pain. Nausea. TECHNIQUE: Computed tomography (CT) of the abdomen and pelvis was performed without intravenous contr ast. Automated exposure control and iterative reconstruction technique were employed. The dose-length product was 255.29 mGy-cm. COMPARISON: CT abdomen and pelvis 12/05/2020 FINDINGS: The visualized portions of the lung bases are clear without pneumonia or pleural effusion. The heart size is normal. No pericardial effusion. The liver, spleen, pancreas, and gallbladder are n ormal. There is severe atrophy of right kidney. There is an acute subcapsular hematoma in right kidne y with maximum thickness of 2.9 cm. There is acute hematoma in the right perinephric space. There is chronic severe right hydronephrosis and hydroureter. There are surgical changes in right pelvis. Ther e is cortical thinning of left kidney. There is no urolithiasis. There are no dilated loops of bowel. There is a moderate volume of stool in the colon. The appendix is not visualized. There is a small v olume of perihepatic ascites. There are no pathologically enlarged lymph nodes. The bones are unremar kable. IMPRESSION: 1. Acute subcapsular and perinephric hematoma involving right kidney. Chronic severe right hydronephr osis and hydroureter with chronic severe right kidney atrophy. I called this result to Li Wadsworth. 2. Small volume of perihepatic ascites. Reviewed, dictated and finalized at location A. IMPRESSION: 1. Acute subcapsular and perinephric hematoma involving right kidney. Chronic s evere right hydronephrosis and hydroureter with chronic severe right kidney atr ophy. I called this result to Li Wadsworth. 2. Small volume of perihepatic ascites.
[2021-03-12 12:15] VITALS: BP 103/65; PULSE 74; RESP 15; TEMP 37.3; O2SAT 100
[2021-03-12 12:29] LABS: Basophils Percent Auto 0.3 % (0.2-1.2); Eosinophils Absolute Auto 0.1 K/mm3 (0-0.3); Eosinophils Percent Auto 0.4 % (0-4.4); Hematocrit 39.7 % (37.0-47.0); Hemoglobin 13.3 g/dL (12.0-15.0); Immature Granulocyte Absolute 0.05 K/mm3 (0.00-0.031); Immature Granulocyte Percent A 0.4 % (0-0.5); Lymphocytes Absolute Auto 1.06 K/mm3 (0.9-3.2); Mean Corpuscular HGB Conc 33.5 g/dl (32-36); Mean Corpuscular Hemoglobin 31.9 pg (26-34); Mean Corpuscular Volume 95.2 fl (80-100); Mean Platelet Volume 9.6 fl (7.4-10.4); Monocytes Absolute Auto 0.8 K/mm3 (0.1-0.6); Monocytes Percent Auto 7.1 % (2.6-8.5); Neutrophils Absolute Auto 9.8 K/mm3 (1.3-6.7); Neutrophils Percent Auto 82.8 % (45.5-73.1); Platelet Count Result 318 k/mm3 (150-375); Red Blood Count 4.17 M/mm3 (4.2-5.4); Red Cell Distribution Width 12.4 % (11.5-14.5); White Blood Count 11.8 K/mm3 (4.5-10.0)
[2021-03-12 12:39] LABS: Alanine Aminotransferase 12 U/L (4-35); Albumin Level 4.1 g/dL (3.5-5.1); Alkaline Phosphatase 64 U/L (38-126); Anion Gap 6 mmol/L (8-16); Aspartate Amino Transferase 22 U/L (14-36); Bilirubin,Total 0.4 mg/dL (0.2-1.3); Blood Urea Nitrogen 18 mg/dL (7-17); Calcium 8.5 mg/dL (8.4-10.2); Carbon Dioxide 33 mmol/L (22-30); Chloride 99 mmol/L (98-107); Estimated CRCL calculation 35 ml/min; Estimated Glomerular Filt Rate 29; Glucose 117 mg/dL (65-110); Lipase 36 U/L (23-300); Potassium 3.3 mmol/L (3.4-5.0); Sodium 138 mmol/L (137-145)
[2021-03-12 14:24] VITALS: BP 119/72; PULSE 120; RESP 20; O2SAT 98
[2021-03-12 16:24] VITALS: BP 115/83; PULSE 106; RESP 18; TEMP 37.4; O2SAT 97
[2021-03-12 16:38] VITALS: BP 116/94; PULSE 105; RESP 16; O2SAT 100
--- NOTE | 2021-03-12 16:51 | ED.BACK ---
HPI - Back Pain/Injury General Chief Complaint: Back Pain/Injury <BETH Magana Last Filed: 03/12/21 18:42> Stated Complaint: right flank pain <BETH Magana Last Filed: 03/12/21 18:42> Time Seen by Provider: 03/12/21 16:36 <BETH Magana Last Filed: 03/12/21 18:42> Source: patient <BETH Magana Last Filed: 03/12/21 18:42> Mode of arrival: ambulatory <BETH Magana Last Filed: 03/12/21 18:42> Limitations: no limitations <BETH Magana Last Filed: 03/12/21 18:42> History of Present Illness HPI Narrative: This is a 40-year-old female that presents to the emergency department for right flank pain. Reports the pain started yesterday. It is sharp in nature. Initially it was somewhat relieved with anti-inflammatories. But today the pain is worsened. The pain radiates to her right lower quadrant. Denies fever, vomiting, dysuria, or hematuria. <BETH Magana Last Filed: 03/12/21 18:42> Related Data Home Medications: Home Medications Medication Instructions Recorded Confirmed Absorica LD 8 mg PO DAILY 11/23/19 11/23/19 atomoxetine 100 mg PO DAILY 11/23/19 11/23/19 bupropion HCl 150 mg PO DAILY 11/23/19 11/23/19 estrogens-methyltestosterone 1 tablet PO DAILY 11/23/19 11/23/19 lisinopril 40 mg PO DAILY 11/23/19 11/23/19 <BETH Magana Last Filed: 03/12/21 18:42> Allergies/Adverse Reactions: Allergies Allergy/AdvReac Type Severity Reaction Status Date / Time codeine Allergy Unknown Nausea and Verified 12/05/20 01:12 Vomiting Sulfa (Sulfonamide Allergy Unknown Itching Verified 12/05/20 01:12 Antibiotics) sulfanilamide Allergy Unknown Itching Verified 12/05/20 01:12 <BETH Magana Last Filed: 03/12/21 18:42> Review of Systems Review of Systems: CONSTITUTIONAL: Denies fever GASTROINTESTINAL: Reports abdominal pain, nausea. Denies vomiting, or diarrhea. GENITOURINARY: Denies dysuria or hematuria. SKIN: Denies rash <Li Wadsworth PA-C - Last Filed: 03/12/21 18:42> All systems reviewed & are unremarkable except as noted in HPI and below <Li Wadsworth PA-C - Last Filed: 03/12/21 18:42> PMFSH Past Medical History Medical History: Medical History Anxiety Attention deficit disorder Endometriosis HTN (hypertension) <BETH Magana Last Filed: 03/12/21 18:42> Surgical History Surgical History: Surgical History History of hysterectomy <Li Wadsworth PA-C - Last Filed: 03/12/21 18:42> Family History Family History: Family History Father Hypertension Mother Family history of malignant neoplasm Diabetes mellitus Multiple myeloma Hypertension TIA (transient ischemic attack) Grandparent Family history of lung cancer Family history of heart disease in male family member before age 55 <BETH Magana Last Filed: 03/12/21 18:42> Social History Social History: Social History Smoking status: Never smoker Smoking end date: 06/02/99 Alcohol intake: never Substance use: current Substance use type: marijuana Last use: 11/22/19 1600 Gender identity (if verbalized by the patient): Female Spiritual care concerns: No <BETH Magana Last Filed: 03/12/21 18:42> Exam Narrative: GENERAL: Well-appearing, well-nourished, and in no acute distress. HEAD: Normocephalic, atraumatic. EYES: EOMI. CHEST: Clear to auscultation. No respiratory distress. No wheezes rales or rhonchi HEART: Regular rate and rhythm. No murmur heard. Normal peripheral pulses. ABDOMEN: Soft, nondistended, normal active bowel sounds. Tender to palpation on the right lower quadrant, without guarding. Positive right-sided C
[2021-03-12 16:54] LABS: Add Urine Microscopic? YES; Appearance Urine Clear (Clear); Bilirubin Urine Negative (Negative); Blood Urine Negative (Negative); Color Urine Yellow (Yellow); Glucose Urine UA Negative (Negative); Ketones Urine Negative (Negative); Leukocyte Esterase Ur Negative LEU/UL (Negative); Mucus Urine Rare /lpf; Nitrate Urine Negative (Negative); Protein Urine 2+ mg/dL (Negative); Squamous Epithelial Cell Urine Occasional /hpf (Few)
[2021-03-12] MEDS: SODIUM CHLORIDE 0.9% IV 1,000 ML 999 ML IV CONT (17:49)
[2021-03-12] MEDS: MORPHINE SULFATE (*CRX) 2 MG/ML INJ IV PUSH (17:49)
[2021-03-12] MEDS: ONDANSETRON INJ 4 MG/2 ML VIAL IV PUSH (17:50)
[2021-03-12 18:04] LABS: Partial Thromboplastin Time 26.9 SECONDS (22.3-36.8); Prothrombin Time 13.3 Seconds (11.1-14.7)
[2021-03-12 19:17] LABS: Hematocrit 35.1 % (37.0-47.0); Hemoglobin 11.6 g/dL (12.0-15.0)
[2021-03-12] MEDS: POTASSIUM CHLORIDE 20 MEQ TABLET 40 MEQ PO (19:27)
[2021-03-12 19:53] VITALS: BP 100/60; PULSE 70; RESP 18; O2SAT 99
[2021-03-12 20:18] VITALS: BMI 22.4
--- NOTE | 2021-03-12 20:18 | ADMGEN ---
This patient, Jessica Hernandez, was admitted to 2 Medical Room 255-. Patient/family oriented to hospital policies and general routines including ID bracelet, bed and alarms, visiting hours, pain management, procedures, bathroom and other care routines, personal items, smoking policy, room service/diet, and visiting hours. Information on how to activate the Rapid Response Team has been discussed. Patient/Family are encouraged to report perceived risks to care and to ask questions if they do not understand what they are told or what they should do.
[2021-03-12 20:19] VITALS: BP 107/64; PULSE 92; RESP 18; TEMP 36.2; O2SAT 96
--- NOTE | 2021-03-12 23:02 | PM.IMHP ---
H&P: HPI History of Present Illness Date/Time: 03/12/21 23:02 this is a 40-year-old female patient who has a known history of chronic renal failure and has been seeing a beam builder helper. The patient is aware that she has a right kidney that has chronic hydronephrosis. The patient stated that about a week ago she fell down but really did hurt herself. She stated that she just started having pain yesterday that was in her right flank area. Today it was worse and radiated to her right lower quadrant. The patient did not have any burning urination or any blood in her urine. She denied any fever chills or any nausea vomiting. WBCs 11.8. H&H initially was 13.3 and 39.7 is now 11.6 and 35.1. Potassium 3.3. BUN is 18 creatinine is 1.9. Her baseline creatinine is somewhere between 1.5 and 1.7. Her GFR today is 35 and typically somewhere between 41 and 45. Abdominal pelvis and CT was read as the following 1. Acute subcapsular and perinephric hematoma involving right kidney. Chronic severe right hydronephrosis and hydroureter with chronic severe right kidney atrophy. I called this result to Li Wadsworth. 2. Small volume of perihepatic ascites. The patient was given IV fluids, morphine, Zofran, IV Tylenol and potassium supplement in the emergency room. The patient admits to taking Motrin at home over the last day. Dr. Ronquillo had been consulted from the emergency room. Patient is being admitted for observation status on the date of service of 03/12/2021. Chief Complaint: Right flank pain Review of Systems Review of Systems: All systems reviewed & are unremarkable except as noted in HPI and below Constitutional: Constitutional: Reports as per HPI and Reports no additional constitutional complaints Eyes: Eyes: Reports as per HPI and Reports no additional eye complaints ENT: Reports system reviewed and no additional complaints, except as documented and Reports Normal hearing present Cardiovascular: Cardiovascular: Reports no additional cardiovascular complaints Respiratory: Respiratory: Reports no additional respiratory complaints and Reports no additional respiratory complaints Gastrointestinal: Gastrointestinal: Reports as per HPI and Reports no additional gastrointestinal complaints Musculoskeletal: Musculoskeletal: Reports no additional musculoskeletal complaints Integumentary/Breasts: Skin/Breast: Reports system reviewed and no additional complaints, except as docu and Reports as per HPI Neurologic: Reports system reviewed and no additional complaints, except as documented, Reports as per HPI and Reports Normal hearing present Psychiatric: Psychiatric: Reports no additional psychiatric complaints and Reports as per HPI Endocrine: Endocrine: Reports no additional endocrine complaints Hematologic/Lymphatic: Hematologic/Lymphatic: Reports no additional hematologic/lymphatic complaints Allergic/Immunologic: Allergic/Immunologic: Reports no additional allergic/immunologic complaints [facility] Past Medical History Medical History (Updated 03/12/21 @ 23:12 by Shilpi Brock NP) Anxiety Attention deficit disorder Chronic kidney disease, stage 3 Endometriosis HTN (hypertension) Hydronephrosis Surgical History Surgical History (Updated 03/12/21 @ 23:12 by Shilpi Brock NP) H/O dilation and curettage History of hysterectomy History of laparoscopy History of laparotomy S/P tonsillectomy and adenoidectomy Family History Family History Father Hypertension Mother Family history of malignant neoplasm Diabetes mellitus Multiple myeloma Hypertension TIA (transient ischemic attack) Grandparent Family history of lung cancer Family history of heart disease in male family member before age 55 Social History Social History (Updated 03/12/21 @ 23:14 by Shilpi Brock NP) Social History: The patient is and lives with her . Her is the durable
[2021-03-13] MEDS: SODIUM CHLORIDE 0.9% IV 1,000 ML 100 ML IV CONT (00:08)
[2021-03-13 00:49] LABS: Hematocrit 35.2 % (37.0-47.0); Hemoglobin 11.7 g/dL (12.0-15.0)
[2021-03-13 03:47] VITALS: BP 103/61; PULSE 99; RESP 16; TEMP 36.8; O2SAT 98
[2021-03-13 05:47] LABS: Hematocrit 34.7 % (37.0-47.0); Hemoglobin 11.3 g/dL (12.0-15.0)
[2021-03-13 05:59] LABS: Lactic Acid Reflex 0.6 mmol/L (0.7-2.1)
[2021-03-13 06:03] LABS: Alanine Aminotransferase 10 U/L (4-35); Albumin Level 3.5 g/dL (3.5-5.1); Alkaline Phosphatase 58 U/L (38-126); Anion Gap 6 mmol/L (8-16); Aspartate Amino Transferase 19 U/L (14-36); Bilirubin,Total 0.6 mg/dL (0.2-1.3); Blood Urea Nitrogen 17 mg/dL (7-17); Calcium 7.9 mg/dL (8.4-10.2); Carbon Dioxide 26 mmol/L (22-30); Chloride 104 mmol/L (98-107); Estimated CRCL calculation 39 ml/min; Estimated Glomerular Filt Rate 33; Glucose 85 mg/dL (65-110); Potassium 4.2 mmol/L (3.4-5.0); Sodium 136 mmol/L (137-145)
[2021-03-13 06:28] LABS: CRP 25.8 mg/dL (<1.0)
[2021-03-13] MEDS: buPROPion HCL SR (12HR) 100 MG TABCR 200 MG PO (08:10)
[2021-03-13] MEDS: busPIRone HCL 5 MG TABLET 15 MG PO (08:10)
--- NOTE | 2021-03-13 08:58 | WPDURCON ---
Assessment and Plan Assessment and plan (1) Hydronephrosis: Qualifiers: Hydronephrosis type: unspecified Qualified Code(s): N13.30 - Unspecified hydronephrosis Code(s): N13.30 - Unspecified hydronephrosis Status: Chronic Assessment and Plan: Chronic in nature and does not require any intervention at this time. (2) Hematoma of kidney: Qualifiers: Encounter type: initial encounter Laterality: right Qualified Code(s): S37.011A - Minor contusion of right kidney, initial encounter Code(s): S37.019A - Minor contusion of unspecified kidney, initial encounter Status: Acute Assessment and Plan: Etiology is unclear but may be spontaneous or secondary to her recent fall. None the less she is hemodynamically stable with no significant complaints at this time. From a urologic standpoint patient can be discharged home. She is to refrain from any strenuous activity. She can follow up with our nurse practitioner in a month's time at which point we can repeat a renal CT to see if there is resolution of her hematoma. If she develops any further symptoms she is to be re-evaluated immediately. Urology Consult Note HPI Date Seen: 03/13/21 Time Seen: 08:58 Requesting Physician: Anna Guzman PA-C Primary Care Provider: Dickson Forrest, Consult Narrative Reason for consult: Right perinephric subcapsular hematoma Narrative: Jessica Hernandez is a 40 year old female with a history of endometriosis which had caused bilateral ureteral obstruction at 1 time. It subsequently caused right renal atrophy with a renal scan showing only 4% function in that kidney. Patient had a hysterectomy several years back to address that issue. She was doing well but stated that she had fallen a few days ago. She did not really appreciate any significant pain at that time. She then developed right flank pain and was evaluated the emergency room. CT scan reveals her chronic right hydroureter with a subcapsular hematoma. There was also perinephric blood noted. At the time my evaluation she is feeling much better. She has been hemodynamically stable and her hemoglobin has been staying stable at 11.3 over the past 3 checks. Renal function is fairly stable with a creatinine 1.7. Review of Systems Review of Systems: All systems reviewed & are unremarkable except as noted in HPI and below PMFSH Past Medical History Medical History Anxiety Attention deficit disorder Chronic kidney disease, stage 3 Endometriosis HTN (hypertension) Hydronephrosis Surgical History Surgical History H/O dilation and curettage History of hysterectomy History of laparoscopy History of laparotomy S/P tonsillectomy and adenoidectomy Family History Family History Father Hypertension Mother Family history of malignant neoplasm Diabetes mellitus Multiple myeloma Hypertension TIA (transient ischemic attack) Grandparent Family history of lung cancer Family history of heart disease in male family member before age 55 Social History Social History Social History: The patient is and lives with her . Her is the durable power research attorney for healthcare. The patient desires to be a full code. The patient does not have any children. The patient works at [employer]. Patient is a lifelong nonsmoker. She does not use any illicit drugs or drink alcohol. Code status full code Smoking status: Never smoker Smoking end date: 06/02/99 Alcohol intake: never Substance use: current Substance use type: marijuana Other substance usage details: 03/12/2021 Last use: 11/22/19 1600 Gender identity (if verbalized by the patient): Female
--- NOTE | 2021-03-13 10:17 | PM.CNNEP ---
Assessment and Plan Assessment and plan (1) Stage 3b chronic kidney disease: Code(s): N18.32 - Chronic kidney disease, stage 3b Status: Chronic Assessment and Plan: due to chronic hydronephrosis and right renal atrophy/decreased function (as noted by last renal scan) baseline creatinine 1.5 - 1.7mg/dl in the last year or so (2) Hematoma of kidney: Qualifiers: Encounter type: initial encounter Laterality: right Qualified Code(s): S37.011A - Minor contusion of right kidney, initial encounter Code(s): S37.019A - Minor contusion of unspecified kidney, initial encounter Status: Acute Assessment and Plan: presumably secondary to fall/trauma H/H stable imaging noted Urology recommendations reviewed (3) Hydronephrosis: Qualifiers: Hydronephrosis type: unspecified Qualified Code(s): N13.30 - Unspecified hydronephrosis Code(s): N13.30 - Unspecified hydronephrosis Status: Chronic Assessment and Plan: chronic issue that has been present since 2007 no intervention required (4) HTN (hypertension): Code(s): I10 - Essential (primary) hypertension Status: Chronic Assessment and Plan: lisinopril on hold probably ok to restart/resume on discharge given relative hypotension on presentation, consider reduce dose on discharge Will continue to follow History of Present Illness Reason for Consult Consult date: 03/13/21 Reason for consult: chronic renal failure Chief Complaint Chief complaint: right kidney hematoma History of Present Illness Narrative: The patient is a 40 y/o female with a past medical history as outlined below who presented to [facility] ER with complaints of abdominal pain. Apparently, the patient fell about a week ago but did not really suffer any acute injuries. However, the patient started having pain the day before admission that was in her right flank area. On the day of admission, the pain was acutely worse and radiated down to her right lower quadrant. She had no other associated symptoms the guarded fevers, chills, nausea, vomiting or any urinary symptoms. As the pain seemed to be getting progressively worse, she presented to the [facility] ER for further evaluation Workup and evaluation emergency room demonstrated the patient to be hemodynamically stable if not may be technically relatively hypotensive and in moderate pain /distress with regard to her right flank pain. Routine blood test demonstrated a relatively normal CBC and a chemistry that was consistent with her known history of chronic renal insufficiency. Do the severity of the pain that she was having she had a CT scan of the abdomen pelvis shows demonstrated a subscapular and perinephric hematoma involving the right kidney in association with chronic right severe hydronephrosis/ hydroureter with chronic / severe right kidney atrophy. Given these findings she was given IV fluids Morphine as well as Tylenol and subsequently admitted to the hospital for further evaluation and therapy with Urology consultation. Since her admission, her H&H has remained relatively stable and her pain control is doing reasonably well. Due to her higher creatinine than baseline by admission labs, her lisinopril was held and p.r.n. medications have been ordered if her blood pressure becomes an issue / problem. She has already been seen by Urology who does not feel any further intervention needs to be done at this time and is not opposed to discharge if otherwise medically stable. Renal consultation was requested due to her known history of chronic kidney disease. The patient is quite known to me as I take care of her outpatient CKD management. The patient has had some degree of renal insufficiency that dates back as far as 2007 secondary to her history of chronic obstruction. Since that time, her creatinine normally had been running around 1.3-1.
[2021-03-13 11:24] VITALS: BMI 22.4
[2021-03-13 12:40] LABS: Hematocrit 32.4 % (37.0-47.0); Hemoglobin 10.8 g/dL (12.0-15.0)
[2021-03-13 14:00] VITALS: BP 106/65; PULSE 95; RESP 16; TEMP 36.9; O2SAT 100
--- NOTE | 2021-03-13 14:15 | PM.DS ---
DS: Admitting Diagnosis Discharge Date 03/13/21 Admitting Diagnosis Flank pain DS: Discharge Diagnosis Discharge Diagnosis (1) Hematoma of kidney: Qualifiers: Encounter type: initial encounter Laterality: right Qualified Code(s): S37.011A - Minor contusion of right kidney, initial encounter Code(s): S37.019A - Minor contusion of unspecified kidney, initial encounter Status: Acute Assessment and Plan: This is a 40-year-old female patient who has a known history of chronic renal failure due to chronic hydronephrosis from endometriosis, who fell down a week ago but really did hurt herself. She stated that she just started having pain 1 day prior to arrival that was in her right flank area. Symptoms became worse and radiating to RLQ and came to the ER. Initial labs WBCs 11,800. H&H initially was 13.3 and 39.7 is now 10.8/32.4%. Potassium 3.3. BUN is 18 creatinine is 1.9. Her baseline creatinine is somewhere between 1.5 and 1.7. Her GFR today is 35 and typically somewhere between [address] Abdominal pelvis showed Acute subcapsular and perinephric hematoma involving right kidney. Chronic severe right hydronephrosis and hydroureter with chronic severe right kidney atrophy. Small volume of perihepatic ascites. The patient was given IV fluids, morphine, Zofran, IV Tylenol and potassium supplement in the emergency room and admitted to the floor for hematoma of kidney with consult to Dr. Ronquillo and Dr. Mcfadden for further evaluatoin. During her hospitalization her pain improved with IV pain meds. Blood counts were checked every 6 hours and were stable. Urology saw her and recommended follow-up in [address] of her kidney to monitor resolution of her hematoma. Otherwise pain control until symptoms improved. Nephrology evaluated the patient and states her renal function is at her baseline and did not recommend any other treatment at this time Patient had not received any IV pain med since the morning and has otherwise been resting comfortably. I will discharge her on tramadol as needed for pain control. Told her not to take any NSAIDs. The patient was given return to ER warnings. Patient was told to follow-up with PCP, Nephrology and Urology as an outpatient. Patient understands agrees the plan all questions answered. (2) Chronic kidney disease, stage 3: Code(s): N18.3 - Chronic kidney disease, stage 3 (moderate) Status: Chronic (3) Hydronephrosis: Qualifiers: Hydronephrosis type: unspecified Qualified Code(s): N13.30 - Unspecified hydronephrosis Code(s): N13.30 - Unspecified hydronephrosis Status: Chronic (4) HTN (hypertension): Code(s): I10 - Essential (primary) hypertension Status: Chronic Assessment and Plan: Patient's blood pressure has been low normal. She states she has had some weight loss and decreased appetite for the last few months. I will hold her blood pressure medications at this time. Tele to check her blood pressure twice a day at home and follow-up with her primary care provider for further evaluation monitoring. DS: Summary Hospital Course Hospital Course: See above Status at Discharge Cognitive/behavioral status at discharge: Stable, improved. Time Spent with Patient Time attestation: Total time spent providing and/or coordinating discharge services: 43 Time spent: Greater than 30 minutes Exam Narrative: General: 40-year-old woman laying on her left side in bed resting. Appears comfortable. In no acute distress. Skin: No signs of trauma to back. No jaundice or cyanosis. Good skin turgor. Neck: Full range of motion. Supple. Respiratory: Lungs are clear to auscultation bilaterally. No bony chest wall tenderness. Cardiovascular: The heart has a regular rate and rhythm without murmur. Lower extremitie
== END 2021-03-13 16:17 | disposition home or self-care (01) ==
LOC: ANHED 18:35 → ANH2MED 19:05
PROVIDERS: Emergency Medicine; Nurse Practitioner; Physician Assistant; Admitting Provider Internal Medicine; Emergency Provider Emergency Medicine; PCP Family Medicine; Visit Provider Family Medicine
DX: S37.011A Minor contusion of right kidney, initial encounter (principal); W19.XXXA Unspecified fall, initial encounter; R18.8 Other ascites; N13.39 Other hydronephrosis; I12.9 Hypertensive chronic kidney disease with stage 1 through stage 4 chronic kidney disease, or unspecified chronic kidney disease; N18.30 Chronic kidney disease, stage 3 unspecified
CPT/HCPCS: 36415; 74176; 80053; 81001; 81025; 82728; 83605; 83690; 83735; 84443; 85014; 85018; 85025; 85610; 85730; 86140; 96361; 96365; 96374; 96375; 96376; 99285; A9270; G0378; J0131; J2270; J2405; J7030

== ENCOUNTER 2021-03-27 17:36 | Inpatient (IN) | payer OTHER, SELFPAY ==
[2021-03-27] VITALS (8 sets, daily range): BP systolic 119–125; BP diastolic 75–84; PULSE 99–116; RESP 18–20; TEMP 38.4–38.8; O2SAT 96–100
--- NOTE | ~2021-03-27 | CT_ITS ---
EXAMINATION: CT abdomen pelvis wo con DATE: 03/27/2021 22:10 INDICATION: Right lower quadrant pain TECHNIQUE: Computed tomography (CT) of the abdomen and pelvis was performed without intravenous contr ast. The dose-length product was 298.92 mGy-cm. Automated exposure control and iterative reconstructi on technique were employed. COMPARISON: Comparison to multiple prior studies sequentially, with oldest reviewed study dated 10/2020. . FINDINGS: Lung bases are unremarkable. Heart size normal. No significant pleural or pericardial effus ion. No significant vascular abnormality. The liver, spleen, pancreas, adrenal glands and left kidney are unremarkable. There is chronic severe right hydronephrosis with near complete loss of right renal cortex. There is right perinephric fluid and soft tissue extending along the psoas margin into the pelvis which may re present hemorrhage or abscess no acute osseous abnormality.. Bladder is unremarkable. Nonobstructive bowel gas pattern. Bowel anastomosis noted in the pelvis. Bladder is unremarkable. There is gas noted nondependent aspect of the abdomen adjacent to the rectus muscle at the midline, l ikely insinuated bowel gas IMPRESSION: 1. Chronic severe right hydronephrosis with severe atrophy of the right kidney. Complex fluid and sof t tissue is identified in the right perinephric space extending inferiorly along the psoas margin int o the pelvis. This complex fluid/soft tissue may represent hemorrhage or infection/abscess. Recommend urology consultation. Reviewed, dictated and finalized at location A. IMPRESSION: 1. Chronic severe right hydronephrosis with severe atrophy of the right kidney. Complex fluid and soft tissue is identified in the right perinephric space ext ending inferiorly along the psoas margin into the pelvis. This complex fluid/so ft tissue may represent hemorrhage or infection/abscess. Recommend urology cons ultation.
--- NOTE | ~2021-03-27 | CT_ITS ---
CORRECTED REPORT ORDER CHANGE 03/29/21 [facility] [place] EXAMINATION: 1. CT guide absc cath placement 2. CT guide nephro tube pl RT DATE: 03/28/2021 13:07 INDICATION: Right perinephric abscess. Right-sided hydronephrosis. TECHNIQUE: The procedure including the risks, benefits, and alternatives was discussed with the patient. Risks discussed included bleeding and infection. The patient understood the risks and benefits and agreed to proceed. The skin overlying the right kidney was prepped and draped in usual sterile fashion. Anesthetic was administered with 1% lidocaine subcutaneously. An 18-gauge needle was inserted into the right perinephric abscess under CT guidance. The needle was exchanged over a wire for 6 Qatari, 8 Qatari, and 9 Qatari dilators and then for an 8.5 Qatari pigtail catheter under CT guidance. An 18 gauge trochar needle was inserted into a calyx of the right kidney under CT guidance. The needle was exchanged over a wire for 6 Qatari and 8 Qatari dilators and then for an 8.5 Qatari pigtail catheter under CT guidance. The catheters were stitched to the skin. A dressing was applied. The mA was adjusted according to patient size. Iterative reconstruction technique was employed. The dose-length product was 181.15 mGy-cm. There were no immediate complications. FINDINGS: CT images demonstrate the drain in the right perinephric abscess. CT images demonstrate the nephrostomy tube in the renal pelvis. IMPRESSION: 1. Successful CT-guided right perinephric abscess drainage yielding opaque red material. This tube is inferior and lateral to the nephrostomy tube and is attached to a suction bag. 2. Successful CT-guided nephrostomy tube placement] yielding 10 mL opaque wyatt fluid. This material was sent for aerobic and anaerobic cultures. This tube is superior and medial to the perinephric abscess drain and is attached to a gravity drainage bag. Reviewed, dictated and finalized at location A. MTDD IMPRESSION: 1. Successful CT-guided right perinephric abscess drainage yielding opaque red material. This tube is inferior and lateral to the nephrostomy tube and is miranda ched to a suction bag. 2. Successful CT-guided nephrostomy tube placement] yielding 10 mL opaque wyatt f luid. This material was sent for aerobic and anaerobic cultures. This tube is s uperior and medial to the perinephric abscess drain and is attached to a gravit y drainage bag.
[2021-03-27 17:53] LABS: Basophils Percent Auto 0.2 % (0.2-1.2); Eosinophils Percent Auto 0.1 % (0-4.4); Hematocrit 30.8 % (37.0-47.0); Hemoglobin 9.8 g/dL (12.0-15.0); Immature Granulocyte Absolute 0.09 K/mm3 (0.00-0.031); Immature Granulocyte Percent A 0.5 % (0-0.5); Lymphocytes Absolute Auto 1.91 K/mm3 (0.9-3.2); Lymphocytes Percent Auto 11.5 % (18.3-44.2); Mean Corpuscular HGB Conc 31.8 g/dl (32-36); Mean Corpuscular Hemoglobin 30.8 pg (26-34); Mean Corpuscular Volume 96.9 fl (80-100); Monocytes Percent Auto 5.8 % (2.6-8.5); Neutrophils Absolute Auto 13.7 K/mm3 (1.3-6.7); Neutrophils Percent Auto 81.9 % (45.5-73.1); Platelet Count Result 786 k/mm3 (150-375); Red Blood Count 3.18 M/mm3 (4.2-5.4); Red Cell Distribution Width 13.6 % (11.5-14.5); White Blood Count 16.7 K/mm3 (4.5-10.0)
[2021-03-27 18:05] LABS: Alanine Aminotransferase 49 U/L (4-35); Albumin Level 3.8 g/dL (3.5-5.1); Alkaline Phosphatase 137 U/L (38-126); Anion Gap 9 mmol/L (8-16); Aspartate Amino Transferase 58 U/L (14-36); Bilirubin,Total 0.6 mg/dL (0.2-1.3); Blood Urea Nitrogen 16 mg/dL (7-17); Calcium 8.6 mg/dL (8.4-10.2); Carbon Dioxide 28 mmol/L (22-30); Chloride 101 mmol/L (98-107); Estimated CRCL calculation 33 ml/min; Estimated Glomerular Filt Rate 28; Glucose 86 mg/dL (65-110); Lipase 43 U/L (23-300); Potassium 4.9 mmol/L (3.4-5.0); Sodium 138 mmol/L (137-145)
[2021-03-27 18:40] LABS: Add Urine Microscopic? YES; Appearance Urine Cloudy (Clear); Bacteria Urine 1+ /hpf; Bilirubin Urine Negative (Negative); Blood Urine Negative (Negative); Color Urine Amber (Yellow); Glucose Urine UA Negative (Negative); Ketones Urine Negative (Negative); Leukocyte Esterase Ur 3+ LEU/UL (Negative); Nitrate Urine Negative (Negative); Protein Urine 2+ mg/dL (Negative); RBC Urine 21-50 /hpf (0-2); Squamous Epithelial Cell Urine Occasional /hpf (Few); WBC Urine >75 /hpf
--- NOTE | 2021-03-27 20:00 | PC.NURSE ---
Pt. up to front edger requesting update on room status. pt. updated that we are working as fast as we can to get pt. back to a room.
--- NOTE | 2021-03-27 20:58 | PC.NURSE ---
RN noticed that pt. had family in waiting room with pt. RN asked family member to step out and wait in car until pt. is pulled back into a room. pt. family member got up and ask family member to get phone number for hospital. family member walked out of triage.
--- NOTE | 2021-03-27 21:53 | ED.FEVER ---
HPI - Fever General Chief Complaint: Fever Stated Complaint: fever Time Seen by Provider: 03/27/21 21:52 Source: patient Mode of arrival: ambulatory Limitations: no limitations History of Present Illness HPI Narrative: Patient is a 40-year-old female complaining of fever accompanied by right sided abdominal pain, 6 out of 10, dull, nonradiating started 2 weeks ago when she was diagnosed with subcapsular hematoma/perinephric hematoma in her right kidney. Patient denies any chest pain, shortness of breath, nausea, vomiting, or diarrhea. Related Data Home Medications Medication Instructions Recorded Confirmed bupropion HCl 200 mg PO BID 11/23/19 03/12/21 estrogens-methyltestosterone 1 tablet PO DAILY 11/23/19 03/12/21 lisinopril 40 mg PO DAILY 11/23/19 03/12/21 Premarin 0.625 mg VAGINAL USEASDIRECTD 03/12/21 03/12/21 Vyvanse 30 mg PO DAILY 03/12/21 03/12/21 buspirone 15 mg PO BID 03/12/21 03/12/21 Allergies Allergy/AdvReac Type Severity Reaction Status Date / Time codeine Allergy Unknown Nausea and Verified 03/12/21 22:49 Vomiting Sulfa (Sulfonamide Allergy Unknown Itching Verified 03/12/21 22:49 Antibiotics) sulfanilamide Allergy Unknown Itching Verified 03/12/21 22:49 Review of Systems Review of Systems: All systems reviewed & are unremarkable except as noted in HPI and below Constitutional: Constitutional: Denies body ache(s), Denies excessive sweating, Denies fatigue, Denies headache(s), Denies lethargy, Denies malaise, Denies weakness and Denies weight loss Eyes: Eyes: Denies blurry vision, Denies change in vision and Denies loss of vision ENT: Denies dizziness, Denies ear discharge, Denies headache(s), Denies lip swelling, Denies epistaxis, Denies nasal congestion, Denies neck pain, Denies throat swelling and Denies tongue swelling Cardiovascular: Cardiovascular: Denies chest pain, Denies chest pain at rest, Denies chest pain with activity, Denies diaphoresis, Denies rapid heart rate, Denies edema, Denies irregular heart rhythm, Denies lightheadedness, Denies palpitations, Denies dyspnea and Denies dyspnea on exertion Respiratory: Respiratory: Denies chest congestion, Denies cough, Denies hemoptysis, Denies dyspnea and Denies dyspnea on exertion Gastrointestinal: Gastrointestinal: Denies melena, Denies hematochezia, Denies diarrhea, Denies nausea, Denies vomiting and Denies hematemesis Musculoskeletal: Musculoskeletal: Denies abnormal gait, Denies deformity, Denies joint swelling, Denies limited range of motion, Denies neck pain and Denies numbness Neurologic: Denies Abnormal speech present, Denies abnormal gait, Denies confusion, Denies dizziness, Denies headache(s), Denies focal weakness, Denies loss of vision, Denies numbness, Denies Other visual disturbances, Denies Sensory deficit (Neuro) and Denies weakness Psychiatric: Psychiatric: Denies confusion, Denies depression, Denies auditory hallucinations, Denies homicidal ideation and Denies suicidal ideation Endocrine: Endocrine: Denies cold intolerance, Denies excessive sweating, Denies fatigue, Denies heat intolerance and Denies palpitations Hematologic/Lymphatic: Hematologic/Lymphatic: Denies easy bleeding and Denies easy bruising Allergic/Immunologic: Allergic/Immunologic: Denies lip swelling, Denies throat swelling and Denies tongue swelling PMFSH Past Medical History Medical History Anxiety Attention deficit disorder Chronic kidney disease, stage 3 Endometriosis HTN (hypertension) Hydronephrosis Surgical History Surgical History H/O dilation and curettage History of hysterectomy History of laparoscopy History of laparotomy S/P tonsillectomy and adenoidectomy Family History Family History Father Hypertension Mother Family history of malignant neoplasm Diabetes mellitus M
[2021-03-27] MEDS: LACTATED RINGERS 1,000 ML 999 ML IV CONT (22:27)
[2021-03-27] MEDS: ACETAMINOPHEN 325 MG TABLET 650 MG PO (22:37)
[2021-03-27 23:57] LABS: Lactic Acid Reflex 0.7 mmol/L (0.7-2.1)
[2021-03-28] VITALS (7 sets, daily range): BP systolic 108–128; BP diastolic 67–84; PULSE 89–102; RESP 16–20; TEMP 36.7–37.7; O2SAT 97–100; BMI 22.8
--- NOTE | 2021-03-28 00:33 | ADMGEN ---
This patient, Jessica Hernandez, was admitted to 3 [facility] Room 315-02. Patient/family oriented to hospital policies and general routines including ID bracelet, bed and alarms, visiting hours, pain management, procedures, bathroom and other care routines, personal items, smoking policy, room service/diet, and visiting hours. Information on how to activate the Rapid Response Team has been discussed. Patient/Family are encouraged to report perceived risks to care and to ask questions if they do not understand what they are told or what they should do.
[2021-03-28] MEDS: LACTATED RINGERS 1,000 ML 125 ML IV CONT ×3 (00:56→18:31)
--- NOTE | 2021-03-28 02:14 | PM.IMHP ---
H&P: HPI History of Present Illness Date/Time: 03/28/21 02:14 Chief Complaint: Fevers Narrative: This is a 40-year-old female past medical history significant for hypertension, generalized anxiety, chronic kidney disease, endometriosis, bilateral hydronephrosis. Patient suffered a fall on her back and while she was trail hiking 3 weeks ago a week after that she presented to emergency room due to back pain she was found to have a hematoma retroperitoneal on the right side she was sent home she started having low-grade fevers and then she reached out to her urologist who told her to continue to monitor patient had 1 episode of 1 of for body temperature cold urologist but after was not able to hear from them decided to present to the emergency room. Patient has been found to have a perinephric abscess. CT of abdomen and pelvis was significant for chronic severe right hydronephrosis with severe atrophy of the right kidney, complex fluid and soft tissue is identified in the right perinephric space extending inferiorly along the psoas margin into the pelvis,this complex fluid/soft tissue may represent hemorrhage or infection/abscess. A urinalysis was significant for numerous wbc's present WBC was significant for leukocytosis of 16,000. In emergency room urology was contacted, patient has been placed in observation for further management evaluation and treatment. Review of Systems Review of Systems: Fevers right flank discomfort Constitutional: Constitutional: Reports chills, Reports fatigue, Reports fever(s), Reports lethargy, Reports malaise, Reports night sweats, Reports poor appetite and Reports weakness Eyes: Eyes: Denies change in vision ENT: Denies dysphagia, Denies nasal congestion, Denies nasal discharge, Denies nasal obstruction and Denies odynophagia Cardiovascular: Cardiovascular: Denies rapid heart rate, Denies edema, Denies irregular heart rhythm, Denies claudication, Denies leg edema, Denies lightheadedness, Denies radiating jaw, neck or arm pain, Denies palpitations and Denies dyspnea Gastrointestinal: Gastrointestinal: Reports abdominal pain, Denies heartburn, Denies diarrhea, Denies nausea and Denies vomiting Genitourinary: Genitourinary: Reports flank pain (Right-sided) Musculoskeletal: Musculoskeletal: Reports back pain, Denies arthralgias and Denies stiffness Integumentary/Breasts: Skin/Breast: Denies rash Neurologic: Denies vertigo, Denies dizziness, Denies focal weakness and Denies Sensory deficit (Neuro) Psychiatric: Psychiatric: Reports as per HPI Endocrine: Endocrine: Reports as per HPI Hematologic/Lymphatic: Hematologic/Lymphatic: Reports as per HPI Allergic/Immunologic: Allergic/Immunologic: Reports as per HPI [facility] Past Medical History Medical History Anxiety Attention deficit disorder Chronic kidney disease, stage 3 Endometriosis HTN (hypertension) Hydronephrosis Surgical History Surgical History H/O dilation and curettage History of hysterectomy History of laparoscopy History of laparotomy S/P tonsillectomy and adenoidectomy Family History Family History Father Hypertension Mother Family history of malignant neoplasm Diabetes mellitus Multiple myeloma Hypertension TIA (transient ischemic attack) Grandparent Family history of lung cancer Family history of heart disease in male family member before age 55 Social History Social History Social History: The patient is and lives with her . Her is the durable power prosecuting attorney for healthcare. The patient desires to be a full code. The patient does not have any children. The patient works at [employer]. Patient is a lifelong nonsmoker. She does not use any illicit drugs or drink alcohol.
[2021-03-28 10:19] LABS: Mean Platelet Volume 8.9 fl (7.4-10.4); Platelet Count Result 674 k/mm3 (150-375)
[2021-03-28 10:49] LABS: INR 1.1; Partial Thromboplastin Time 33.3 SECONDS (22.3-36.8); Prothrombin Time 14.3 Seconds (11.1-14.7)
--- NOTE | 2021-03-28 12:15 | WPDURCON ---
Assessment and Plan Assessment and plan (1) Renal and perinephric abscess: Code(s): N15.1 - Renal and perinephric abscess Status: Acute Assessment and Plan: After discussion of symptoms and reviewing her CT with Dr. Ronquillo and Dr. Blanco, it has been decided that placement of a drain for the abscess and nephrostomy tube in the right kidney will likely improve her infection and pain. Will plan to do this in IR today with Dr. Blanco. Obtain Consent and Keep NPO. Consent: Right Nephrostomy tube with possible right renal drain placement. Continue IV antibiotics, Dr. Blanco will attempt to culture renal fluid, will tailor antibiotics to cutlures. (2) Hematoma of kidney: Qualifiers: Encounter type: initial encounter Laterality: right Qualified Code(s): S37.011A - Minor contusion of right kidney, initial encounter Code(s): S37.019A - Minor contusion of unspecified kidney, initial encounter Status: Acute Urology Consult Note HPI Date Seen: 03/28/21 Requesting Physician: Meghan Langley PA-C Primary Care Provider: Dickson Forrest, Consult Narrative Narrative: Jessica Hernandez is a 40 year old female who presents with worsening right flank pain. She was admitted two weeks ago and evaluated by DR. Ronquillo for a right perinephric hematoma believed to be caused by a fall a week prior while hiking. She has known chronic right hydronephrosis and an atrophic kidney on the right. She was doing well with pain at that time and was hemodynamically stable, therefore she was sent home to f/u with us in a month for repeat CT. She has been running fevers for two weeks from 100-104 degrees Fahrenheit. She denies dysuria and hematuria but does state the flank pain slightly wraps around to her RUQ. She also denies nausea and vomiting. Her repeat CT yesterday shows chronic severe right hydro which is stable as well as a consistently atrophic right kidney, but she has new findings of a complex fluid and soft tissue that is identified in the right perinephric space extending inferiorly along psoas margin into the pelvis noted as worsening hematoma or abscess. Blood and urine cultures are pending at this time, WBC is elevated at 16.7, creatinine is up slightly at 2.00, which did not allow for a CT with and without contrast. She is currently on Vancomycin and Ceftriaxone, but pain is not well controlled. Review of Systems Cardiovascular: Cardiovascular: Denies chest pain Respiratory: Respiratory: Reports no additional respiratory complaints Gastrointestinal: Gastrointestinal: Reports abdominal pain, Denies nausea and Denies vomiting Genitourinary: Genitourinary: Denies hematuria, Denies dysuria and Reports flank pain (right) [facility] Past Medical History Medical History Anxiety Attention deficit disorder Chronic kidney disease, stage 3 Endometriosis HTN (hypertension) Hydronephrosis Surgical History Surgical History H/O dilation and curettage History of hysterectomy History of laparoscopy History of laparotomy S/P tonsillectomy and adenoidectomy Family History Family History Father Hypertension Mother Family history of malignant neoplasm Diabetes mellitus Multiple myeloma Hypertension TIA (transient ischemic attack) Grandparent Family history of lung cancer Family history of heart disease in male family member before age 55 Social History Social History Social History: The patient is and lives with her . Her is the durable power tetryl boiling tub operator for healthcare. The patient desires to be a full code. The patient does not have any children. The patient works at [employer] Patient is a lifelong nonsmoker. She does not use any illicit drugs or
--- NOTE | 2021-03-28 13:25 | PM.IMPN ---
Progress Note: A&P Assessment and Plan (1) Renal and perinephric abscess: Code(s): N15.1 - Renal and perinephric abscess Status: Acute Assessment and Plan: Status post drain and nephrostomy tube placed and doing well -continue vancomycin and ceftriaxone -await blood and abscess culture and tailor antibiotics according to the results -urology on board -will repeat BMP (2) Stage 3b chronic kidney disease: Code(s): N18.32 - Chronic kidney disease, stage 3b Status: Chronic Assessment and Plan: Slightly worse above baseline, likely due to above -suspect this will continue to improve with treatment -she sees Dr. Mcfadden outpatient (3) Hydronephrosis: Qualifiers: Hydronephrosis type: unspecified Qualified Code(s): N13.30 - Unspecified hydronephrosis Code(s): N13.30 - Unspecified hydronephrosis Status: Chronic Assessment and Plan: Nephrostomy tube in place (4) HTN (hypertension): Code(s): I10 - Essential (primary) hypertension Status: Chronic Assessment and Plan: Last blood pressure 108/67 -continue lisinopril but with parameters Additional Plan dvt prophylaxis with SCDs at this time due to hematoma and drain Time Spent With Patient Time with patient: 25 - 35 minutes Subjective Date/time seen: 03/28/21 13:25 Interval history: Pt is a 40-year-old female here for renal abscess and hematoma. Patient was seen today and states she is feeling okay after her drain placement. She says she continues to have some pain and pressure to the right side. She denies chest pain, shortness of breath, nausea, vomiting, diarrhea but does have some constipation which is chronic for her. She did have fevers and chills overnight. Review of Systems Review of Systems: All systems reviewed & are unremarkable except as noted in HPI and below Exam Narrative: General: Well developed well nourished patient in NAD HEENT: normocephalic Neck: supple Neuro: Alert and oriented x4 CV:RRR with a rate of 98 on exam Resp:CTA Abd: Soft, non distended. No pain to palpation. Positive bowel sounds back: Drain and nephrostomy tube in place. Right flank drain with bloody output. Nephrostomy tube also present with purulent fluid draining. Extremities: No swelling, erythema, or pain to palpation. Objective Data Vital Signs Vital Signs: Vital Signs - 24 hr 03/27/21 17:38 03/27/21 20:10 03/27/21 22:31 Temperature 101.2 F H 101.8 F H Pulse Rate 106 H 116 H 108 H Respiratory Rate 18 20 19 Blood Pressure 124/81 119/76 121/75 Pulse Oximetry 96 97 100 03/27/21 22:33 03/27/21 22:46 03/27/21 23:01 Temperature Pulse Rate 102 H Respiratory Rate Blood Pressure 121/75 120/79 122/84 Pulse Oximetry 03/27/21 23:16 03/27/21 23:31 03/28/21 00:16 Temperature Pulse Rate 99 99 Respiratory Rate 18 Blood Pressure 125/81 119/80 118/84 Pulse Oximetry 98 97 03/28/21 00:25 03/28/21 06:00 Temperature 98.1 F 98.3 F Pulse Rate 97 89 Respiratory Rate 16 16 Blood Pressure 111/75 108/67 Pulse Oximetry 99 97 Intake/Output Intake/Output: Intake & Output 03/25/21 03/26/21 03/27/21 03/28/21 23:59 23:59 23:59 23:59 Intake Total 1050 1000 Balance 1050 1000 Meds/Results Medications: Active Medications Generic Name Dose Route Start Last Admin Trade Name Freq PRN Reason Stop Dose Admin Hydromorphone HCl 0.5 mg 03/27/21 22:56 Hydromorphone Hcl Inj (*Crx) 1 Mg/Ml Syr IV PUSH Q4H PRN Pain Rated 7-10 Acetaminophen 650 mg in 65 mls @ 260 mls/hr 03/27/21 22:56 Ofirmev 650 Mg Ivpb IVPB 03/28/21 22:55 Q6H PRN Mild Pain (1-3) or Fever Lactated Ringer's 1,000 mls @ 125 mls/hr 03/27/21 23:00 03/28/21 09:04 Lr - Lactated Ringers Iv IV CONT 125 mls/hr .Q8H [facility] Administration Vancomycin HCl 1,000 mg in 250 mls @ 250 mls/hr 03/29/21 10:00 Vancomycin 1,000 Mg/D5w 250 Ml
[2021-03-28 14:22] LABS: Basophils Percent Auto 0.3 % (0.2-1.2); Eosinophils Percent Auto 0.1 % (0-4.4); Hematocrit 28.6 % (37.0-47.0); Hemoglobin 9.3 g/dL (12.0-15.0); Immature Granulocyte Absolute 0.11 K/mm3 (0.00-0.031); Immature Granulocyte Percent A 0.7 % (0-0.5); Lymphocytes Absolute Auto 1.45 K/mm3 (0.9-3.2); Lymphocytes Percent Auto 9.2 % (18.3-44.2); Mean Corpuscular HGB Conc 32.5 g/dl (32-36); Mean Corpuscular Hemoglobin 30.8 pg (26-34); Mean Corpuscular Volume 94.7 fl (80-100); Mean Platelet Volume 9.2 fl (7.4-10.4); Monocytes Absolute Auto 1.1 K/mm3 (0.1-0.6); Neutrophils Absolute Auto 13.1 K/mm3 (1.3-6.7); Neutrophils Percent Auto 82.7 % (45.5-73.1); Platelet Count Result 705 k/mm3 (150-375); Red Blood Count 3.02 M/mm3 (4.2-5.4); Red Cell Distribution Width 13.4 % (11.5-14.5); White Blood Count 15.8 K/mm3 (4.5-10.0)
[2021-03-28] MEDS: HYDROmorphone HCL INJ (*CRX) 1 MG/ML SYR 0.5 MG IV PUSH ×3 (14:22→22:12)
[2021-03-28] MEDS: buPROPion HCL SR (12HR) 100 MG TABCR 200 MG PO (20:52)
[2021-03-29] MEDS: LACTATED RINGERS 1,000 ML 125 ML IV CONT (05:49)
[2021-03-29 06:00] VITALS: BP 101/54; PULSE 89; RESP 18; TEMP 36.9; O2SAT 99
[2021-03-29 06:24] LABS: Basophils Percent Auto 0.2 % (0.2-1.2); Eosinophils Percent Auto 0.1 % (0-4.4); Hematocrit 29.3 % (37.0-47.0); Hemoglobin 9.3 g/dL (12.0-15.0); Immature Granulocyte Percent A 0.7 % (0-0.5); Lymphocytes Absolute Auto 1.82 K/mm3 (0.9-3.2); Lymphocytes Percent Auto 12.3 % (18.3-44.2); Mean Corpuscular HGB Conc 31.7 g/dl (32-36); Mean Corpuscular Hemoglobin 31.2 pg (26-34); Mean Corpuscular Volume 98.3 fl (80-100); Mean Platelet Volume 9.2 fl (7.4-10.4); Monocytes Percent Auto 6.5 % (2.6-8.5); Neutrophils Absolute Auto 11.9 K/mm3 (1.3-6.7); Neutrophils Percent Auto 80.2 % (45.5-73.1); Platelet Count Result 647 k/mm3 (150-375); Red Blood Count 2.98 M/mm3 (4.2-5.4); Red Cell Distribution Width 13.7 % (11.5-14.5); White Blood Count 14.8 K/mm3 (4.5-10.0)
[2021-03-29 06:26] LABS: Alanine Aminotransferase 31 U/L (4-35); Albumin Level 2.6 g/dL (3.5-5.1); Alkaline Phosphatase 118 U/L (38-126); Anion Gap 8 mmol/L (8-16); Aspartate Amino Transferase 28 U/L (14-36); Bilirubin,Total 0.3 mg/dL (0.2-1.3); Blood Urea Nitrogen 16 mg/dL (7-17); Calcium 8.2 mg/dL (8.4-10.2); Carbon Dioxide 26 mmol/L (22-30); Chloride 102 mmol/L (98-107); Estimated CRCL calculation 37 ml/min; Estimated Glomerular Filt Rate 31; Glucose 106 mg/dL (65-110); Sodium 136 mmol/L (137-145)
--- NOTE | 2021-03-29 07:58 | WPDUROPN2 ---
Progress Note: A&P Assessment and Plan (1) Renal and perinephric abscess: Code(s): N15.1 - Renal and perinephric abscess Status: Acute Assessment and Plan: Status post nephrostomy tube as well as drainage of abscess. Awaiting cultures. Once improving and on appropriate antibiotics can be discharged home. Will discuss with Dr. Montes or Dr. Bocanegra if they wish to take over the care as patient will need a nephrectomy going forward. Otherwise will need referral to [facility] (2) Hydronephrosis: Qualifiers: Hydronephrosis type: unspecified Qualified Code(s): N13.30 - Unspecified hydronephrosis Code(s): N13.30 - Unspecified hydronephrosis Status: Chronic Subjective Subjective Date/Time Seen: 03/29/21 07:58 Principal diagnosis: Perinephric hematoma with abscess Interval history: Angela is status post nephrostomy tube placement along with drain placed in the abscess. Her white count is only slightly improved. Renal function has gone from 2 to 1.8. Cultures are pending. Review of Systems Review of Systems: All systems reviewed & are unremarkable except as noted in HPI and below Exam Const: General: cooperative Eyes: General: appearance normal, both eyes and all related structures Resp: Effort & Inspection: normal respiratory effort Cardio: Rate: regular rate Rhythm: regular rhythm GI: Inspection: normal to inspection Objective Data Vital Signs Vital Signs: Vital Signs - 24 hr 03/28/21 14:00 03/28/21 20:00 03/28/21 21:39 Temperature 37.7 C H Pulse Rate 102 H 100 Respiratory Rate 20 20 Blood Pressure 119/69 Pulse Oximetry 99 100 98 03/28/21 21:58 03/29/21 06:00 Temperature 37.5 C 36.9 C Pulse Rate 100 89 Respiratory Rate 20 18 Blood Pressure 128/79 101/54 L Pulse Oximetry 100 99 Intake/Output Intake/Output: Intake & Output 03/26/21 03/27/21 03/28/21 03/29/21 23:59 23:59 23:59 23:59 Intake Total 1050 2805 1000 Output Total 210 Balance 1050 2595 1000 Meds/Results Medications: Active Medications Generic Name Dose Route Start Last Admin Trade Name Freq PRN Reason Stop Dose Admin Acetaminophen 650 mg 03/28/21 19:46 Acetaminophen 325 Mg Tablet PO Q6H PRN Mild Pain (1-3) or Fever Bupropion HCl 200 mg 03/28/21 21:00 03/28/21 20:52 Bupropion Hcl Sr (12hr) 100 Mg Tabcr PO 200 mg Q12HR [facility] Administration Buspirone HCl 15 mg 03/28/21 17:00 03/28/21 20:01 Buspirone Hcl 5 Mg Tablet PO Not Given BID [facility] Estrogens Esterified/Methyltestost 1 tab 03/29/21 09:00 Estrogen Est/Me Test (*Crx) (Estratest) 1.25/2.5 Mg Tablet PO DAILY [facility] Hydromorphone HCl 0.5 mg 03/27/21 22:56 03/28/21 22:12 Hydromorphone Hcl Inj (*Crx) 1 Mg/Ml Syr IV PUSH 0.5 mg Q4H PRN Administration Pain Rated 7-10 Lactated Ringer's 1,000 mls @ 125 mls/hr 03/27/21 23:00 03/29/21 05:49 Lr - Lactated Ringers Iv IV CONT 125 mls/hr .Q8H [facility] Administration Vancomycin HCl 1,000 mg in 250 mls @ 250 mls/hr 03/29/21 10:00 Vancomycin 1,000 Mg/D5w 250 Ml IVPB Q36H [facility] Ceftriaxone Sodium/Dextrose 1 gm in 50 mls @ 100 mls/hr 03/28/21 23:00 03/28/21 22:48 Rocephin 1 Gm/D5w 50 Ml IVPB Infused Q24H [facility] Infusion Lisinopril 40 mg 03/29/21 09:00 Lisinopril 20 Mg Tablet PO DAILY [facility] Miscellaneous Information 0 each 03/28/21 00:01 Lisdexamfetamine [Vyvanse] Is Non-Formulary XX 04/27/21 00:00 CLARIFY [facility] Non-Formulary Medication 30 mg 03/29/21 09:00 Lisdexamfetamine [Vyvanse] PO 04/28/21 08:59 DAILY [facility] Polyethylene Glycol 17 gm 03/28/21 14:00 03/28/21 18:32 Polyethylene Glycol 3350 17 Gm Powd.Pack PO Not Given QAM [facility] Radiology Results: ITS Impressions Abdomen/Pelvis CT 03/27/21 22:12 IMPRESSION: 1. Chronic severe right hydronephrosis with severe atrophy of the right kidney. Complex fluid and soft tissue is identified in the right perinephric s
--- NOTE | 2021-03-29 08:45 | PM.IMPN ---
Progress Note: A&P Assessment and Plan (1) Renal and perinephric abscess: Code(s): N15.1 - Renal and perinephric abscess Status: Acute Assessment and Plan: Status post drain and nephrostomy tube placed and doing well -her creatinine is improving as is the pain -continue vancomycin and ceftriaxone -await blood and abscess culture and tailor antibiotics according to the results -urology on board (2) Stage 3b chronic kidney disease: Code(s): N18.32 - Chronic kidney disease, stage 3b Status: Chronic Assessment and Plan: Improving e -suspect this will continue to improve with treatment -she sees Dr. Mcfadden outpatient -will continue fluids throughout the day and will discontinue these tonight -repeat BMP in the morning (3) Hydronephrosis: Qualifiers: Hydronephrosis type: unspecified Qualified Code(s): N13.30 - Unspecified hydronephrosis Code(s): N13.30 - Unspecified hydronephrosis Status: Chronic Assessment and Plan: Nephrostomy tube in place (4) HTN (hypertension): Code(s): I10 - Essential (primary) hypertension Status: Chronic Assessment and Plan: Last blood pressure 101/54 -continue lisinopril but with parameters (5) Attention deficit disorder: Code(s): F98.8 - Other specified behavioral and emotional disorders with onset usually occurring in childhood and adolescence Status: Chronic Assessment and Plan: Patient has brought in her home medication and will continue that (6) Anxiety: Code(s): F41.9 - Anxiety disorder, unspecified Status: Chronic Assessment and Plan: Chronic and stable at this time. Continue BuSpar and Wellbutrin Additional Plan dvt prophylaxis with SCDs at this time due to hematoma and drain. I also encouraged the patient to move around Subjective Date/time seen: 03/29/21 08:45 Interval history: Pt is a 40-year-old female here for renal abscess and hematoma. Patient was seen today and is doing okay so far. She does not have much pain at rest but when she is up and moving she continues to have pain. She did have some fevers and chills subjectively overnight and some constipation which is chronic for her. She denies nausea, vomiting, chest pain, shortness of breath or diarrhea. She is eating and drinking okay. Exam Narrative: General: Well developed well nourished patient in [facility] HEENT: normocephalic Neck: supple Neuro: Alert and oriented x4 CV:RRR Resp:CTA Abd: Soft, non distended. No pain to palpation. Positive bowel sounds back: Drain and nephrostomy tube in place. Right flank drain with bloody output. Nephrostomy tube also present with urine mixed with blood Extremities: No swelling, erythema, or pain to palpation. Objective Data Vital Signs Vital Signs: Vital Signs - 24 hr 03/28/21 14:00 03/28/21 20:00 03/28/21 21:39 Temperature 99.8 F H Pulse Rate 102 H 100 Respiratory Rate 20 20 Blood Pressure 119/69 Pulse Oximetry 99 100 98 03/28/21 21:58 03/29/21 06:00 Temperature 99.5 F 98.4 F Pulse Rate 100 89 Respiratory Rate 20 18 Blood Pressure 128/79 101/54 L Pulse Oximetry 100 99 Intake/Output Intake/Output: Intake & Output 03/26/21 03/27/21 03/28/21 03/29/21 23:59 23:59 23:59 23:59 Intake Total 1050 2805 1000 Output Total 210 Balance 1050 2595 1000 Meds/Results Medications: Active Medications Generic Name Dose Route Start Last Admin Trade Name Freq PRN Reason Stop Dose Admin Acetaminophen 650 mg 03/28/21 19:46 Acetaminophen 325 Mg Tablet PO Q6H PRN Mild Pain (1-3) or Fever Bupropion HCl 200 mg 03/28/21 21:00 03/28/21 20:52 Bupropion Hcl Sr (12hr) 100 Mg Tabcr PO 200 mg Q12HR [facility] Administration Buspirone HCl 15 mg 03/28/21 17:00 03/28/21 20:01 Buspirone Hcl 5 Mg Tablet PO Not Given BID [facility] Estrogens Esterified/Methyltestost 1 tab
[2021-03-29] MEDS: busPIRone HCL 5 MG TABLET 15 MG PO ×2 (08:57→16:15)
[2021-03-29] MEDS: buPROPion HCL SR (12HR) 100 MG TABCR 200 MG PO ×2 (08:58→20:30)
[2021-03-29] MEDS: polyethylene glycoL 3350 17 GM POWD.PACK PO (08:58)
[2021-03-29] MEDS: LACTATED RINGERS 1,000 ML 60 ML IV CONT (08:59)
--- NOTE | 2021-03-29 09:51 | PHAR ---
HOME MED VERIFIED LISDEXAMFETAMINE (VYVANSE) 30MG CAPSULE ONE DAILY HOME MED VERIFIED ESTROGEN EST/ METHYLTESTOSTERONE 1.25\2.5 ONE DAILY
[2021-03-29 14:00] VITALS: BP 108/68; PULSE 81; RESP 14; TEMP 36.6; O2SAT 99
--- NOTE | 2021-03-29 14:26 | PC.NURSE ---
On 03/29/21, the student, Chandni [facility], provided care and completed [facility] documentation on this patient. I have reviewed the student's documentation and agree with the findings.
[2021-03-29] MEDS: HYDROmorphone HCL INJ (*CRX) 1 MG/ML SYR 0.5 MG IV PUSH (18:26)
[2021-03-29 22:00] VITALS: BP 138/83; PULSE 101; RESP 20; TEMP 36.2; O2SAT 100
[2021-03-30 06:00] VITALS: BP 113/63; PULSE 89; RESP 18; TEMP 36.5; O2SAT 99
[2021-03-30 06:21] LABS: Basophils Percent Auto 0.3 % (0.2-1.2); Eosinophils Absolute Auto 0.1 K/mm3 (0-0.3); Eosinophils Percent Auto 1.3 % (0-4.4); Hematocrit 27.7 % (37.0-47.0); Hemoglobin 8.8 g/dL (12.0-15.0); Immature Granulocyte Absolute 0.04 K/mm3 (0.00-0.031); Immature Granulocyte Percent A 0.4 % (0-0.5); Lymphocytes Absolute Auto 2.71 K/mm3 (0.9-3.2); Lymphocytes Percent Auto 27.3 % (18.3-44.2); Mean Corpuscular HGB Conc 31.8 g/dl (32-36); Mean Corpuscular Hemoglobin 30.2 pg (26-34); Mean Corpuscular Volume 95.2 fl (80-100); Mean Platelet Volume 9.3 fl (7.4-10.4); Monocytes Absolute Auto 0.7 K/mm3 (0.1-0.6); Monocytes Percent Auto 6.8 % (2.6-8.5); Neutrophils Absolute Auto 6.3 K/mm3 (1.3-6.7); Neutrophils Percent Auto 63.9 % (45.5-73.1); Platelet Count Result 664 k/mm3 (150-375); Red Blood Count 2.91 M/mm3 (4.2-5.4); Red Cell Distribution Width 13.6 % (11.5-14.5); White Blood Count 9.9 K/mm3 (4.5-10.0)
[2021-03-30 06:45] LABS: Alanine Aminotransferase 38 U/L (4-35); Albumin Level 2.9 g/dL (3.5-5.1); Alkaline Phosphatase 109 U/L (38-126); Anion Gap 8 mmol/L (8-16); Aspartate Amino Transferase 49 U/L (14-36); Bilirubin,Total 0.3 mg/dL (0.2-1.3); Blood Urea Nitrogen 14 mg/dL (7-17); Calcium 8.3 mg/dL (8.4-10.2); Carbon Dioxide 28 mmol/L (22-30); Chloride 103 mmol/L (98-107); Estimated CRCL calculation 44 ml/min; Estimated Glomerular Filt Rate 39; Glucose 114 mg/dL (65-110); Potassium 4.3 mmol/L (3.4-5.0); Sodium 139 mmol/L (137-145)
[2021-03-30 08:00] VITALS: PULSE 89; RESP 18; O2SAT 99
[2021-03-30] MEDS: busPIRone HCL 5 MG TABLET 15 MG PO (08:16)
[2021-03-30] MEDS: polyethylene glycoL 3350 17 GM POWD.PACK PO (08:16)
[2021-03-30] MEDS: buPROPion HCL SR (12HR) 100 MG TABCR 200 MG PO (08:16)
[2021-03-30] MEDS: lisinopriL 20 MG TABLET 40 MG PO (08:17)
--- NOTE | 2021-03-30 09:29 | WPDUROPN2 ---
Progress Note: A&P Assessment and Plan (1) Renal and perinephric abscess: Code(s): N15.1 - Renal and perinephric abscess Status: Acute Assessment and Plan: Doing better today. White count has normalized. Renal function is also improved slightly. Would recommend a 14 day course of the antibiotics overall. She can be discharged from urologic standpoint. Have discussed need for future right nephrectomy. Will have her follow-up with at our [place] office Subjective Subjective Date/Time Seen: 03/30/21 09:29 Principal diagnosis: Renal abscess and perinephric hematoma Interval history: Feeling much better at this time status post placement of nephrostomy tube as well as drain in abscess. White count is normal. Culture showing Pseudomonas sensitive to Levaquin. Review of Systems Review of Systems: All systems reviewed & are unremarkable except as noted in HPI and below Exam Const: General: cooperative and comfortable Eyes: General: appearance normal, both eyes and all related structures Neck: Neck: normal visual inspection Resp: Effort & Inspection: normal respiratory effort Cardio: Rate: regular rate Rhythm: regular rhythm Objective Data Vital Signs Vital Signs: Vital Signs - 24 hr 03/29/21 14:00 03/29/21 22:00 03/30/21 06:00 Temperature 36.6 C 36.2 C L 36.5 C Pulse Rate 81 101 H 89 Respiratory Rate 14 20 18 Blood Pressure 108/68 138/83 113/63 Pulse Oximetry 99 100 99 Intake/Output Intake/Output: Intake & Output 03/27/21 03/28/21 03/29/21 03/30/21 23:59 23:59 23:59 23:59 Intake Total 1050 2805 2760 1200 Output Total 210 300 50 Balance 1050 2595 2460 1150 Meds/Results Medications: Active Medications Generic Name Dose Route Start Last Admin Trade Name Freq PRN Reason Stop Dose Admin Acetaminophen 650 mg 03/28/21 19:46 Acetaminophen 325 Mg Tablet PO Q6H PRN Mild Pain (1-3) or Fever Bupropion HCl 200 mg 03/28/21 21:00 03/30/21 08:16 Bupropion Hcl Sr (12hr) 100 Mg Tabcr PO 200 mg Q12HR MACARENA Administration Buspirone HCl 15 mg 03/28/21 17:00 03/30/21 08:16 Buspirone Hcl 5 Mg Tablet PO 15 mg BID MACARENA Administration Home Med 1 each 03/29/21 09:00 03/30/21 08:17 Lisdexamfetamine [Vyvanse] 30 Mg Capsule Home Med PO 04/28/21 08:59 1 each DAILY MACARENA Administration Home Med 1 each 03/30/21 09:00 03/30/21 08:18 Home Med Estrogen Est/Me Test (*Crx) (Estratest) 1.25/2.5 Mg Tablet PO 04/28/21 08:59 1 each DAILY MACARENA Administration Hydromorphone HCl 0.5 mg 03/27/21 22:56 03/29/21 18:26 Hydromorphone Hcl Inj (*Crx) 1 Mg/Ml Syr IV PUSH 0.5 mg Q4H PRN Administration Pain Rated 7-10 Levofloxacin/Dextrose 750 mg in 150 mls @ 100 mls/hr 03/29/21 15:00 03/29/21 16:46 Levaquin 750 Mg/D5w 150 Ml IVPB Infused Q48H [facility] Infusion Lisinopril 40 mg 03/29/21 09:00 03/30/21 08:17 Lisinopril 20 Mg Tablet PO 40 mg DAILY MACARENA Administration Polyethylene Glycol 17 gm 03/28/21 14:00 03/30/21 08:16 Polyethylene Glycol 3350 17 Gm Powd.Pack PO 17 gm QAM MACARENA Administration Radiology Results: ITS Impressions Abdomen/Pelvis CT 03/27/21 22:12 IMPRESSION: 1. Chronic severe right hydronephrosis with severe atrophy of the right kidney. Complex fluid and soft tissue is identified in the right perinephric space extending inferiorly along the psoas margin into the pelvis. This complex fluid/soft tissue may represent hemorrhage or infection/abscess. Recommend urology consultation. Catheter Placement CT 03/28/21 13:34 IMPRESSION: 1. Successful CT-guided right perinephric abscess drainage yielding opaque red material. This tube is inferior and lateral to the nephrostomy tube and is attached to a suction bag. 2. Successful CT-guided nephrostomy tube placement] yielding 10 mL opaque wyatt fluid. This material was sent for aerobic and anaerobic cultures. This tube is superior and medial to th
--- NOTE | 2021-03-30 12:39 | ECG_ITS ---
Measurements Intervals [place] Rate: 82 P: 55 IA: 169 QRS: -19 QRSD: 97 T: 35 QT: 360 QTc: 422 Interpretive Statements SINUS RHYTHM ATRIAL PREMATURE COMPLEX DELAYED PRECORDIAL R/S TRANSITION BORDERLINE ECG Electronically Signed On 03-30-2021 14:07:13 CDT by Sonu Solis D.O.
--- NOTE | 2021-03-30 14:14 | PM.DS ---
DS: Admitting Diagnosis Discharge Date 03/30/21 Admitting Diagnosis pyelonephritis, hematoma DS: Discharge Diagnosis Discharge Diagnosis (1) Renal and perinephric abscess: Code(s): N15.1 - Renal and perinephric abscess Status: Acute Assessment and Plan: Status post drain and nephrostomy tube placed and doing well -her creatinine is improving as is the pain -her urine culture and culture from her drain is growing Pseudomonas susceptible to ciprofloxacin. She was placed on 14 days of therapy recommended by Urology. She plans to follow up with them outpatient -blood cultures no growth to date and will be monitored until finalized (2) Stage 3b chronic kidney disease: Code(s): N18.32 - Chronic kidney disease, stage 3b Status: Chronic Assessment and Plan: Improving, now 1.5 -suspect this will continue to improve with the drain and treatment -she sees Dr. Mcfadden outpatient, follow-up with him (3) Hydronephrosis: Qualifiers: Hydronephrosis type: unspecified Qualified Code(s): N13.30 - Unspecified hydronephrosis Code(s): N13.30 - Unspecified hydronephrosis Status: Chronic Assessment and Plan: Nephrostomy tube in place (4) HTN (hypertension): Code(s): I10 - Essential (primary) hypertension Status: Chronic Assessment and Plan: Last blood pressure 111/72 -continue outpatient treatment (5) Attention deficit disorder: Code(s): F98.8 - Other specified behavioral and emotional disorders with onset usually occurring in childhood and adolescence Status: Chronic Assessment and Plan: Chronic and stable. Continue home medications (6) Anxiety: Code(s): F41.9 - Anxiety disorder, unspecified Status: Chronic Assessment and Plan: Chronic and stable at this time. Continue BuSpar and Wellbutrin (7) Thrombocytosis: Code(s): D75.839 - Thrombocytosis, unspecified Status: Acute Assessment and Plan: Likely due to infection, suspected will continue to trend down with treatment DS: Summary Hospital Course Hospital Course: dos 03/30/21. Patient is a 40-year-old female with a past medical history of recent hospitalization due to hematoma of kidney who presented emergency room for increased pain and fever. Initial white blood cell count 16.7, hemoglobin 9.8, hematocrit 30.8, platelets 786. BMP showed elevated creatinine is 2.0. UA suspicious for UTI. AST and ALT mildly elevated 58 and 49 respectively. Urine test negative. CT of the abdomen pelvis showed chronic severe right hydronephrosis with severe atrophy of the right kidney. There was a complex fluid collection in the right perinephric space extending inferior along the psoas margin into the pelvis which was likely hemorrhage or infection/abscess according to the CT. Patient was admitted to the hospitalist service and started on broad-spectrum IV antibiotics and did well. Urology was consulted and Interventional Radiology placed a nephrostomy tube as well as a drain. The nephrostomy tube appeared purulent and the drain adjacent to it had corinne blood consistent with hematoma with abscess. The cultures grew Pseudomonas and the patient was transition to [facility] inpatient. An EKG was done the next day and her QTC was 422. Her liver enzymes remain slightly elevated and her hepatitis panel was negative. These are likely in response to her infection and will likely improve with treatment. Her blood cultures had no growth to date and will be monitored until finalized. Urology recommended 14 additional days of antibiotic therapy and she was discharged on Cipro. She is going to follow up with her primary care physician Dr. Forrest for further monitoring of her liver functions. She also had increased platelet count likely due to infection. Overall, the patient was feeling better and ready to go. She was educate
[2021-03-30 14:29] LABS: Hepatitis B Surface Antigen Negative (Negative)
[2021-03-30 14:32] VITALS: BP 111/72; PULSE 85; RESP 18; TEMP 36.4; O2SAT 100
[2021-03-30 14:43] LABS: Hepatitis C Virus Antibody Negative (Negative)
--- NOTE | 2021-03-30 14:54 | PC.NURSE ---
Abcess drainaged bag 15ml and nephrotube 5 ml prior to discharge today 7a to 3pm.
[2021-03-30 14:55] LABS: HAV RESULT Negative (Negative); Hepatitis B Core IgM Result Negative (Negative)
--- NOTE | 2021-04-03 09:35 | PC.NURSE ---
Hepatitis screen is negative.
== END 2021-03-30 15:45 | disposition home or self-care (01) | DRG 690 ==
LOC: ANHED 23:04 → ANH3MEDSUR 03-28 08:07
PROVIDERS: Nurse Practitioner Adult Health; Admitting Provider Internal Medicine; Emergency Provider Emergency Medicine; PCP Family Medicine; Visit Provider Physician Assistant
DX: N15.1 Renal and perinephric abscess (principal); S37.011A Minor contusion of right kidney, initial encounter; N18.32 Chronic kidney disease, stage 3b; N13.30 Unspecified hydronephrosis; D75.839 Thrombocytosis, unspecified; F98.8 Other specified behavioral and emotional disorders with onset usually occurring in childhood and adolescence; I12.9 Hypertensive chronic kidney disease with stage 1 through stage 4 chronic kidney disease, or unspecified chronic kidney disease; F41.1 Generalized anxiety disorder; W19.XXXA Unspecified fall, initial encounter; Z90.710 Acquired absence of both cervix and uterus; B96.5 Pseudomonas (aeruginosa) (mallei) (pseudomallei) as the cause of diseases classified elsewhere
CPT/HCPCS: 36415; 50432; 74176; 75989; 80048; 80053; 80074; 80076; 81001; 81025; 83605; 83690; 85025; 85049; 85610; 85730; 87040; 87070; 87075; 87077; 87086; 87088; 87186; 87205; 93005; 96365; 99285; A9270; C1729; C1769; J0131; J0696; J1170; J1956; J3370; J7120

== ENCOUNTER 2021-04-16 09:42 | Outpatient (CLI) | payer OTHER, SELFPAY ==
--- NOTE | ~2021-04-16 | XR_ITS ---
EXAMINATION: XR_NEPHROREM_CR DATE: 04/16/2021 10:50 INDICATION: Right hydronephrosis with percutaneous nephrostomy tube. TECHNIQUE: I cut the suture for the percutaneous right-sided nephrostomy tube and then cut the tube. I removed the tube under fluoroscopic guidance. Two images were obtained. The fluoroscopy exposure ti me was 0.1 minutes. A bandage was applied. COMPARISON: None. FINDINGS: Images demonstrate normal unfolding and removal of the percutaneous nephrostomy tube. IMPRESSION: 1. Fluoroscopy guided right percutaneous nephrostomy tube removal. Reviewed, dictated and finalized at location A. S ACCOUNT REPRESENTATIVE
== END 2021-04-16 09:43 | disposition home or self-care (01) ==
LOC: ANHIMG 09:47
PROVIDERS: PCP Family Medicine; Visit Provider Urology
DX: N13.1 Hydronephrosis with ureteral stricture, not elsewhere classified (principal)
CPT/HCPCS: 50389

== ENCOUNTER 2021-06-22 07:13 | Outpatient (CLI) | payer OTHER, SELFPAY ==
[2021-06-22 08:06] LABS: Albumin Level 4.3 g/dL (3.5-5.1); Anion Gap 12 mmol/L (8-16); Blood Urea Nitrogen 18 mg/dL (7-17); Carbon Dioxide 29 mmol/L (22-30); Chloride 97 mmol/L (98-107); Estimated Glomerular Filt Rate 25; Glucose 105 mg/dL (65-110); Phosphorus 3.4 mg/dL (2.5-4.5); Potassium 3.4 mmol/L (3.4-5.0); Sodium 138 mmol/L (137-145)
[2021-06-22 08:18] LABS: Parathyroid Intact 64.2 pg/mL (7.5-53.5)
[2021-06-22 09:03] LABS: Creatinine Urine 66.9 mg/dL; Total Protein Urine Random 26 mg/dL; Ur Ttl Prot Creatinine Ratio 0.39 mg/mg (0-0.20)
== END 2021-06-22 07:14 | disposition home or self-care (01) ==
PROVIDERS: PCP Family Medicine; Visit Provider Internal Medicine Nephrology
DX: I12.9 Hypertensive chronic kidney disease with stage 1 through stage 4 chronic kidney disease, or unspecified chronic kidney disease (principal); N18.32 Chronic kidney disease, stage 3b; E55.9 Vitamin D deficiency, unspecified
CPT/HCPCS: 36415; 80069; 82306; 82570; 83970; 84156

== ENCOUNTER 2021-10-17 08:35 | Outpatient (CLI) | payer OTHER, SELFPAY ==
[2021-10-17 09:09] LABS: Creatinine Urine 143.1 mg/dL; Total Protein Urine Random 13 mg/dL; Ur Ttl Prot Creatinine Ratio 0.09 mg/mg (0-0.20)
[2021-10-17 09:15] LABS: Anion Gap 4 mmol/L (8-16); Blood Urea Nitrogen 19 mg/dL (7-17); Calcium 8.5 mg/dL (8.4-10.2); Carbon Dioxide 33 mmol/L (22-30); Chloride 102 mmol/L (98-107); Estimated Glomerular Filt Rate 31; Glucose 83 mg/dL (65-110); Phosphorus 2.8 mg/dL (2.5-4.5); Potassium 3.6 mmol/L (3.4-5.0); Sodium 139 mmol/L (137-145)
== END 2021-10-17 08:36 | disposition home or self-care (01) ==
PROVIDERS: Visit Provider Internal Medicine Nephrology
DX: I12.9 Hypertensive chronic kidney disease with stage 1 through stage 4 chronic kidney disease, or unspecified chronic kidney disease (principal); N18.32 Chronic kidney disease, stage 3b; Z90.5 Acquired absence of kidney
CPT/HCPCS: 36415; 80069; 82570; 84156

== ENCOUNTER 2022-02-26 13:52 | Outpatient (CLI) | payer OTHER, SELFPAY ==
[2022-02-26 14:22] LABS: Albumin Level 4.4 g/dL (3.5-5.1); Anion Gap 12 mmol/L (8-16); Blood Urea Nitrogen 18 mg/dL (7-17); Calcium 9.1 mg/dL (8.4-10.2); Carbon Dioxide 30 mmol/L (22-30); Chloride 99 mmol/L (98-107); Estimated Glomerular Filt Rate 31; Glucose 103 mg/dL (65-110); Phosphorus 2.7 mg/dL (2.5-4.5); Potassium 3.2 mmol/L (3.4-5.0); Sodium 141 mmol/L (137-145)
[2022-02-26 14:25] LABS: Total Protein Urine Random 25 mg/dL; Ur Ttl Prot Creatinine Ratio 0.19 mg/mg (0-0.20)
[2022-02-26 14:33] LABS: Parathyroid Intact 39.4 pg/mL (7.5-53.5)
[2022-02-26 19:27] LABS: Vitamin D 25 Hydroxy > 126.0 ng/mL
== END 2022-02-26 13:53 | disposition home or self-care (01) ==
LOC: ANHLAB 13:55
PROVIDERS: Visit Provider Internal Medicine Nephrology
DX: I12.9 Hypertensive chronic kidney disease with stage 1 through stage 4 chronic kidney disease, or unspecified chronic kidney disease (principal); N18.32 Chronic kidney disease, stage 3b; E55.9 Vitamin D deficiency, unspecified; Z90.5 Acquired absence of kidney
CPT/HCPCS: 36415; 80069; 82306; 82570; 83970; 84156

== ENCOUNTER 2022-10-21 13:00 | Outpatient (CLI) | payer OTHER, SELFPAY ==
[2022-10-21 13:35] LABS: Total Protein Urine Random 22 mg/dL; Ur Ttl Prot Creatinine Ratio 0.43 mg/mg (0-0.20)
[2022-10-21 13:41] LABS: Albumin Level 4.4 g/dL (3.5-5.1); Anion Gap 8 mmol/L (8-16); Blood Urea Nitrogen 18 mg/dL (7-17); Calcium 8.7 mg/dL (8.4-10.2); Carbon Dioxide 32 mmol/L (22-30); Chloride 100 mmol/L (98-107); Estimated Glomerular Filt Rate 36; Glucose 84 mg/dL (65-110); Phosphorus 2.8 mg/dL (2.5-4.5); Potassium 3.6 mmol/L (3.4-5.0); Sodium 140 mmol/L (137-145)
== END 2022-10-21 13:01 | disposition home or self-care (01) ==
LOC: ANHLAB 13:01
PROVIDERS: Visit Provider Internal Medicine Nephrology
DX: I12.9 Hypertensive chronic kidney disease with stage 1 through stage 4 chronic kidney disease, or unspecified chronic kidney disease (principal); N18.32 Chronic kidney disease, stage 3b; Z90.5 Acquired absence of kidney
CPT/HCPCS: 36415; 80069; 82570; 84156

== ENCOUNTER 2023-02-20 13:00 | Outpatient (RCR) | payer OTHER, SELFPAY ==
--- NOTE | 2023-01-23 09:57 | OPREHPOC ---
Outpatient Therapy Plan of Care This is a Multidisciplinary Plan of Care that may contain components documented by all disciplines (PT, OT, and ST.) PT Problem 1 PT Problem #1 Knowledge Deficit PT Goal 1 Goal 1. Patient will perform independent HEP Target Visit 9 PT Goal 2 Goal 2. Patient will verbalize possible bladder irritants Target Visit 9 PT Problem 2 PT Problem #2 Pain PT Goal 1 Goal 1. Patient able to work and do ADL's with pain no higher than 2/10 Target Visit 9 PT Goal 2 Goal 2. Mild increased pelvic floor muscle tone to reduce pain Target Visit 9 PT Problem 3 PT Problem #3 Impaired Functional ADLs PT Goal 1 Goal 1. Patient able to sleep a full night without waking from pain for at least 1 week Target Visit 9 PT Problem 4 PT Problem #4 Impaired Strength PT Goal 1 Goal 1. Improve pelvic floor strength to 3/5 with complete relaxation after contraction to decrease incontinence
--- NOTE | 2023-01-23 09:58 | PTOPEVAL1 ---
Assessment and note entered by Yue Stiles DPT Evaluation Information Assessment Status Evaluation Subjective Information Pt reports pelvic pain. States she has had problems for years and has also been diagnosed with endometriosis and IC. Significant pain during her periods and felt a lot of muscle spams. History of UTI symptoms but urine culture always came back negative. When she is in pain it causes difficulty sleeping, affects her work, is not able to participate in social activities. Highest pain 8/10 and lowest 1/10. States her pain seems to be mostly near her tailbone. Has tried gabapentin without relief. Typically has mild pain with intercourse and pelvic exam, difficulty keeping a tampon in. At times, significant pain and bruising with intercourse. Hysterectomy in 2007 for endometriosis, previously had tried meds and multiple surgeries. Has had a kidney removed 2021. Also reports urine leakage with cough or sneeze, occurs most days of the week. Urinates less than 10 times a day, none at night. Can hold urge to urinate 30-60 minutes, no sense of urgency. Sometimes has pain with urination if the rest of her pain has increased. Reports chronic constipation and takes Miralax regularly to have a BM every day if she takes it every day, if not frequency decreases. Pt has never been . Patient goal: try to figure out what I can do to manage my pain and keep my pelvic floor operating as it should be. Significantly decreased sleep quality due to pain which causes difficulty working and difficulty doing activities at home or going out in the community. Reported Pain Level Pain Score 0: Self Report Assessment PT Clinical Summary The patient is presenting to skilled therapy with a history of chronic pelvic pain and previous diagnoses of endometriosis and IC. She presents with severely increased pelvic floor muscle tone and decreased core and pelvic floor strength which are contributing to her symptoms and difficulty with sleep, work, and other ADL's. She will highly benefit from therapy to reduce pain and improve overall function. Plan of Care Interventions Electrical Stimulation,Hot Pack/Cold Pack,Manual Therapy,Neuro Re-education,Patient/Caregiver Education,Therapeutic Activities,Therapeutic
--- NOTE | 2023-02-20 13:42 | OPREHPOC ---
Outpatient Therapy Plan of Care This is a Multidisciplinary Plan of Care that may contain components documented by all disciplines (PT, OT, and ST.) PT Problem 1 PT Problem #1 Knowledge Deficit PT Goal 1 Goal 1. Patient will perform independent HEP Target Visit 9 Progress Partially Met PT Goal 2 Goal 2. Patient will verbalize possible bladder irritants Target Visit 9 Progress Partially Met PT Problem 2 PT Problem #2 Pain PT Goal 1 Goal 1. Patient able to work and do ADL's with pain no higher than 2/10 Target Visit 9 Progress Met Comment No pain in the last week PT Goal 2 Goal 2. Mild increased pelvic floor muscle tone to reduce pain Target Visit 9 Progress Partially Met Comment moderate PT Problem 3 PT Problem #3 Impaired Functional ADLs PT Goal 1 Goal 1. Patient able to sleep a full night without waking from pain for at least 1 week Target Visit 9 Progress Partially Met PT Problem 4 PT Problem #4 Impaired Strength PT Goal 1 Goal 1. Improve pelvic floor strength to 3/5 with complete relaxation after contraction to decrease incontinence Progress Partially Met Comment 2/5
--- NOTE | 2023-02-20 13:42 | PTOPPROG ---
Assessment and note entered by Yue Stiles DPT Evaluation Information Assessment Status Progress Subjective Information Highest pain in the last week 0/10. Overall feels that therapy is fine, hard to say as her pain was not very flared up when she started therapy. Assessment PT Clinical Summary The patient has made good progress in therapy. She continues to report no recent flare ups of pain. She demonstrates improved core/hip strength, decreased pelvic floor muscle tone and improvements in her ability to contract pelvic floor musculature. Due to her progress but continued increased muscle tone and core weakness, she will benefit from further therapy to fully reduce pain and improve function. Plan of Care Interventions Electrical Stimulation,Hot Pack/Cold Pack,Manual Therapy,Neuro Re-education,Patient/Caregiver Education,Therapeutic Activities,Therapeutic Exercise PT Services Indicated Yes Treatment Frequency and 1 visit every other week for 3-4 visits Duration These treatments will address the objective and functional deficits as defined above. The patient will be advanced safely and appropriately in order for the patient to progress towards his/her prior level of function. Additional exercises will be introduced and as well as a comprehensive home exercise program upon discharge, if needed, ?to ensure carryover of functional gains achieved in the clinic. This treatment plan has been reviewed and agreement upon by the patient.
--- NOTE | 2023-03-06 13:47 | PCPTNOTE ---
Patient called to cancel appointment 03/06/23 due to work conflict
--- NOTE | 2023-03-20 13:02 | PCPTNOTE ---
Patient did not show up for appointment on 03/20/23. Left voicemail for patient to reschedule.
--- NOTE | 2023-03-27 08:54 | PTOPDC ---
Assessment and note entered by Yue Stiles, DPT Evaluation Information Assessment Status Discharge - Pt Not Present Subjective Information - Assessment PT Clinical Summary Patient is self discharging at this time, has had minimal issues recently. Plan of Care PT Services Indicated No
== END 2023-03-27 11:16 | disposition home or self-care (01) ==
LOC: ANHPT 13:00
PROVIDERS: Visit Provider Obstetrics & Gynecology
DX: R10.2 Pelvic and perineal pain (principal)
CPT/HCPCS: 97110; 97112; 97140; 97162; 97530; 99199

== ENCOUNTER 2023-05-09 11:23 | Outpatient (CLI) | payer OTHER, SELFPAY ==
[2023-05-09 12:14] LABS: Albumin Level 4.3 g/dL (3.5-5.1); Anion Gap 8 mmol/L (8-16); Blood Urea Nitrogen 15 mg/dL (7-17); Calcium 8.9 mg/dL (8.4-10.2); Carbon Dioxide 28 mmol/L (22-30); Chloride 102 mmol/L (98-107); Estimated Glomerular Filt Rate 33; Glucose 128 mg/dL (65-110); Phosphorus 1.9 mg/dL (2.5-4.5); Potassium 3.5 mmol/L (3.4-5.0); Sodium 138 mmol/L (137-145)
[2023-05-09 12:16] LABS: Creatinine Urine 116.3 mg/dL; Total Protein Urine Random 35 mg/dL
[2023-05-09 12:25] LABS: Parathyroid Intact 58.8 pg/mL (7.5-53.5)
== END 2023-05-09 11:24 | disposition home or self-care (01) ==
LOC: ANHLAB 11:25
PROVIDERS: Visit Provider Internal Medicine Nephrology
DX: E55.9 Vitamin D deficiency, unspecified (principal); I12.9 Hypertensive chronic kidney disease with stage 1 through stage 4 chronic kidney disease, or unspecified chronic kidney disease; N18.32 Chronic kidney disease, stage 3b; N25.81 Secondary hyperparathyroidism of renal origin; Z90.5 Acquired absence of kidney
CPT/HCPCS: 36415; 80069; 82306; 82570; 83970; 84156

== ENCOUNTER 2023-11-07 11:37 | Outpatient (CLI) | payer OTHER, SELFPAY ==
[2023-11-07 12:54] LABS: Albumin Level 4.2 g/dL (3.5-5.1); Anion Gap 2 mmol/L (4-12); Blood Urea Nitrogen 19 mg/dL (7-17); Calcium 9.2 mg/dL (8.4-10.2); Carbon Dioxide 36 mmol/L (22-30); Chloride 101 mmol/L (98-107); Estimated Glomerular Filt Rate 31; Glucose 95 mg/dL (65-110); Phosphorus 2.6 mg/dL (2.5-4.5); Potassium 3.6 mmol/L (3.4-5.0); Sodium 139 mmol/L (137-145)
[2023-11-07 13:14] LABS: Creatinine Urine 184.2 mg/dL; Total Protein Urine Random 42 mg/dL; Ur Ttl Prot Creatinine Ratio 0.23 mg/mg (0-0.20)
== END 2023-11-07 11:38 | disposition home or self-care (01) ==
LOC: ANHLAB 11:38
PROVIDERS: Visit Provider Internal Medicine Nephrology
DX: Z90.5 Acquired absence of kidney (principal); I12.9 Hypertensive chronic kidney disease with stage 1 through stage 4 chronic kidney disease, or unspecified chronic kidney disease; N18.32 Chronic kidney disease, stage 3b
CPT/HCPCS: 36415; 80069; 82570; 84156

== ENCOUNTER 2024-09-28 06:38 | Outpatient (CLI) | payer OTHER, SELFPAY ==
--- NOTE | ~2024-09-28 | US_ITS ---
Limited Abdominal Sonogram: Real-time sonographic imaging of the right upper quadrant was performed. Clinical History: Abnormal LFTs Findings: The liver appears normal with no evidence of mass lesion or bile duct dilatation. Main por esther vein demonstrates normal direction of flow. The gallbladder is well distended, and contains echog enic shadowing gallstones. The common bile duct measures 4 mm. The visualized pancreas, aorta, and I VC are unremarkable. Impression: Cholelithiasis. Reviewed, dictated and finalized at location M. Impression: Cholelithiasis.
--- OUTSIDE RECORDS SUMMARY | 2024-09-28 06:44 | XMS_ITS | Encounter Summary ---
Author Organization [facility] Address [address] [place] [address] Care Team Providers Care Naval Inspector Name Role Phone Meghan Workman MD Primary Care Provider [phone] Reason for Visit * Reason Comments Labs Only Encounter Details Date Type Department Care Team (Latest Contact Info) Description 09/27/2024 7:20 AM CDT Clinical Support [facility] [address] [place] [address] Elevated liver transaminase level Social History Tobacco Use Types Packs/Day Years Used Date Smoking Tobacco: Never Smokeless Tobacco: Never Alcohol Use Standard Drinks/Week Comments No 0 (1 standard drink = 0.6 oz pur e alcohol) Comments No Sex and Gender Information Value Date Recorded Sex Assigned at Not on file Legal Sex 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 Patient tolerated well. documented in this encounter Plan of Treatment Upcoming Encounters Date Type Department Care Team (Late st Contact Info) Description 03/21/2025 8:30 AM CDT Office Visit [facility] [address] [place] [address] Shi Thomas, ANP [address] [place] [address] Pending Results Name Type Priority Associated Diagnoses Date /Time HEPATIC FUNCTION PANEL Lab Routine Elevated liver transaminase level 09/27/2024 9:39 AM CDT NADER SCREEN W/REFLEX Lab Routine Elevated liver transaminase level 09/27/2024 9:39 AM CDT IGG Lab Routine Elevated liver transaminase level 09/27/2024 9:39 AM CDT CERULOPLASMIN Lab Routine Elevated liver transaminase level 09/27/2024 9:39 AM CDT HEPATITIS B SURFACE ANTIGEN Lab Routine Elevated liver transaminase level 09/27/2024 9:39 AM CDT HEPATITIS B SURFACE AB, QUAL Lab Routine Elevated liver transaminase level 09/27/2024 9:39 AM CDT HEPATITIS C ANTIBODY W REFLEX Lab Routine Elevated liver transaminase level 09/27/2024 9:39 AM CDT FERRITIN Lab Routine Elevated liver transaminase level 09/27/2024 9:39 AM CDT IRON, TIBC, AND PERCENT SATURATION Lab Routine Elevated liver transaminase level 09/27/2024 9:39 AM CDT LIPID PANEL Lab Routine Elevated liver transaminase level 09/27/2024 9:39 AM CDT PROTIME-INR Lab Routine Elevated liver transaminase level 09/27/2024 9:39 AM CDT MONONUCLEOSIS SCREEN Lab Routine Elevated liver transaminase level 09/27/2024 9:39 AM CDT BASIC METABOLIC PANEL Lab Routine Elevated liver transaminase level 09/27/2024 9:39 AM CDT documented as of this encounter Procedures Procedure Name Priority Date/Time Associated Diagnosis Comments CBC WITH DIFFERENTIAL Routine 09/27/2024 9:39 AM CDT Elevated liver transaminase level documented in this encounter Results * (ABNORMAL) CBC WITH DIFFERENTIAL (09/27/2024 9:39 AM CDT) WBC 6.9 3.8 - 10.8 Thousand/ uL [facility] RBC 5.28(H) 3.80 - 5.10 Million/u L [facility] HEMOGLOBIN 16.4(H) 11.7 - 15.5 g/dL [facility] HEMATOCRIT 50.5(H) 35.0 - 45.0 % [facility] MCV 95.6 80.0 - 100.0 fL [facility] MCH 31.1 27.0 - 33.0 pg [facility] MCHC 32.5 32.0 - 36.0 g/dL [facility] Comment: For adults, a slight decrease in the calculated MCHC value (in the range of 30 to 32 g/dL) is most likely not clinically significant; however, it should be interpreted with caution in correlation with other red cell parameters and the patient's clinical condition. RDW 12.8 11.0 - 15.0 % [facility] PLATELETS 355 140 - 400 Thousand/ uL [facility] MPV 10.3 7.5 - 12.5 fL [facility] NEUTROPHIL ABSOLUTE 4,147 1,500 - 7,800 cells/uL [facility] LYMPHOCYTE ABSOLUTE 2,042 850 - 3,900 cells/uL [facility] MONOCYTE ABSOLUTE 317 200 - 950 cells/uL [facility] EOSINOPHIL ABSOLUTE 352 15 - 500 cells/uL [facility] BASOPHILS ABSOLUTE 41 0 - 200 cells/uL [facility] NEUTROPHIL 60.1 % [facility] LYMPHOCYTES 29.6 % [facility] MONOCYTE 4.6 % [facility] EOSINOPHILS 5.1 % [facility] BASOPHILS 0.6 % [facility] Comment: Test Performed at: [facility] [place] [address] [address] JAMIA Damian [id number] [facility] Blood 09/27/2024 9:39 AM CDT 09/28/2024 12:38 AM CDT us Shi Thomas ANP HEMATOLOGY ORDERABLES Final Result [facility] [phone] [facility] [place] [address] [address] JAMIA Damian [id number] documented in this encounter Visit Diagnoses Diagnosis Elevated liver transaminase level documented in this encounter Additional Health Concerns Assessment Noted Time PHQ-9 Depression Total Score: 2 09/22/19 25 10:00 AM CDT documented as of this encounter Care Teams Naval Inspector Relationship Specialty Start Date End Date Meghan Workman MD [address] [place] [id number] PCP - General Internal Medicine 11/18/23 documented as of this encounter
--- OUTSIDE RECORDS SUMMARY | 2024-09-28 06:44 | XMS_ITS | Clinical Summary ---
Author Organization [facility] Address [address] [place] [address] Care Team Providers Care Graphic Art Sales Representative Name Role Phone SorayaSravan Strange DO Primary Care Provide r Allergies Active Allergy Reactions Criticality Noted Date Comments Ciprofloxacin Diarrhea Low 04/16/2021 Codeine Nausea and Vomiting,GI Upset Low 018 Sulfa Antibiotics Itching 07/18/2021 Medications busPIRone 30 MG tablet Take 30 mg by mouth 2 (two) times a day. 06/28/2021 Active estrogens, conjugated,-met hylTESTOSTERone 1.25-2.5 mg tablet Take 1 tablet by mouth daily. 04/25/2021 Active VYVANSE 40 MG capsule Take 40 mg by mouth daily. 06/28/2021 Active lisinopril 40 MG tablet Take 40 mg by mouth daily. 07/11/2021 Active hydroCHLOROthia zide 12.5 MG tablet Take 12.5 mg by mouth daily. 07/11/2021 Active polyethylene glycol packet Take 17 g by mouth daily. Dissolve powder in 240 mL water Active Cholecalciferol (VITAMIN D3 GUMMIES OR) Take 2 tablets by mouth daily. 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 60 tablet 11 11/29/2021 Active busPIRone (BUSPAR) 30 MG tablet Take 1 tablet by mouth 2 (two) times daily. 07/23/2021 Active cholecalciferol (VITAMIN D-3) 125 MCG (5000 UT) Tab Take 1 tablet by mouth daily. 07/23/2021 Active ID NOW COVID-19 Kit TEST DIRECTED TODAY 11/03/2021 Active PREMARIN 0.625 MG/GM vaginal cream 07/31/2021 Active fluconazole (DIFLUCAN) 150 MG tablet TAKE 1 TABLET BY MOUTH ON DAYS 1 AND 3 09/18/2021 Active lisinopril (PRINIVIL) 40 MG tablet Take 1 tablet by mouth daily. 07/23/2021 Active nitrofurantoin, macrocrystal-mo nohydrate, (MACROBID) 100 MG capsule 08/27/2021 Active polyethylene glycol (GLYCOLAX) 17 GM/SCOOP powder Take 17 g by mouth daily as needed. 07/23/2021 Active sertraline (ZOLOFT) 50 MG tablet Take 50 mg by mouth daily. 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 180 tablet 11 12/17/2021 Active Active Problems Problem Noted Date Diagnosed Date COVID-19 11/14/2021 Family History Medical History Relation Comments Seizures Father Skin cancer Father Multiple myeloma Mother Relation Status Comments Father Alive Mother Social History Tobacco Use Types Packs/Day Years Used Date Smoking Tobacco: Never Smokeless Tobacco: Never Tobacco Cessation:Counseling Given: No Alcohol Use Standard Drinks/Week Comments Never 0 (1 standard drink = 0.6 oz pur e alcohol) Comments No Sex and Gender Information Value Date Recorded Sex Assigned at Not on file Legal Sex Female 7:09 PM CDT Gender Identity Not on file Sexual Orientation Not on file Last Filed Vital Signs Vital Sign Reading Time Taken Comments Blood Pressure 110/60 12/17/2021 11:43 AM CDT Pulse 78 12/17/2021 11:43 AM CDT Temperature 36.8 C (98.3 F) 12/17/2021 11:43 AM CDT Respiratory Rate 16 10/30/2021 10:36 AM CDT Oxygen Saturation 97% 12/17/2021 11:43 AM CDT Inhaled Oxygen Concentration - - Weight 60.8 kg (134 lb) 12/17/2021 11:43 AM CDT Height 170.2 cm (5' 7 ) 12/17/2021 11:43 AM CDT Body Mass Index 20.99 12/17/2021 11:43 AM CDT Plan of Treatment Health Maintenance Due Date Last Done Comments Annual Physical 1984 Hepatitis C 1999 DTaP, Tdap and Td Vaccines ( 1 - Tdap) 2000 Hepatitis B Vaccines (1 of 3 - 19+ 3-dose series) 2000 Mammogram Screening 2021 COVID-19 Vaccine (2023-2 5 season) 2024 06/05/2021, 09/18/2020, 08/28/2020 HPV Vaccines Aged Out No longer eligi ble based on patient's age to complete this topic Meningococcal B Vaccine Aged Out No l onger eligible based on patient's age to complete this topic Meningococcal Vaccine Aged Out No jessie mao eligible based on patient's age to complete this topic Pneumococcal Vaccine: Pediatrics (0 to 5 Years) and At-Risk Patients (6 to 49 Years) Aged Out No longer eligible b ased on patient's age to complete this topic RSV Immunizations Under 20 Months Aged Out No longer eligible b ased on patient's age to complete this topic Insurance GENERIC - COMMERCIAL Care Teams Graphic Art Sales Representative Relationship Specialty Start Date End Date Sravan Wiley DO PCP - General FAMILY PRACTICE 11/14/21
--- OUTSIDE RECORDS SUMMARY | 2024-09-28 06:44 | XMS_ITS | Encounter Summary ---
Author Organization [facility] Address [address] [place] [address] Care Team Providers Care Production Support Developer Name Role Phone Meghan Workman MD Primary Care Provider [phone] Encounter Details Date Type Department Care Team (Late st Contact Info) Description 09/27/2024 Results Follow-Up [facility] [employer] [place] [address] [place] [address] Shi Thomas ANP [address] [facility] [address] [place] [address] HEPATIC FUNCTION PANEL, CK Social History Tobacco Use Types Packs/Day Years Used Date Smoking Tobacco: Never Smokeless Tobacco: Never Alcohol Use Standard Drinks/Week Comments No 0 (1 standard drink = 0.6 oz pur e alcohol) Comments No Sex and Gender Information Value Date Recorded Sex Assigned at Not on file 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 Discussed with pt. Repeat labs today and get STAT US. See telephone encounter. Clinically asymptomatic. FYI to Dr. Workman. documented in this encounter Plan of Treatment Upcoming Encounters Date Type Department Care Team (Late st Contact Info) Description 03/21/2025 8:30 AM CDT Office Visit [facility] at Work [facility] [place] [address] [facility] [place] [address] Shi Thomas, ANP [address] [place] [address] documented as of this encounter Visit Diagnoses Not on filedocumented in this encounter Additional Health Concerns Assessment Noted Time PHQ-9 Depression Total Score: 2 09/22/19 25 10:00 AM CDT documented as of this encounter Care Teams Production Support Developer Relationship Specialty Start Date End Date Meghan Workman MD [address] [place] [address] PCP - General Internal Medicine 11/18/23 documented as of this encounter
--- OUTSIDE RECORDS SUMMARY | 2024-09-28 06:44 | XMS_ITS | Clinical Summary ---
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 Gender Identity Not on file Sexual Orientation Not on file Plan of Treatment Health Maintenance Due Date Last Done Comments Hepatitis C Virus (HCV) Screening 1981 TdaP Immunization 1981 Hepatitis B Immunization (1 of 3 - 19+ 3-dose series) 2000 Pap Smear 2002 Cervical Cancer Screening (CCS) 2011 HPV/Cotest 2011 Discussion re Starting/Frequ ency of Mammograms 2021 Influenza Immunization (#1) 2024 SARS-COV-2 Immunization ( season) 2024 Respiratory Syncytial Virus (RSV) Immunization (Adult) (1 - 1-dose 75+ series) 2056 Meningococcal Immunization (ACWY) Aged Out No longer eligible based on patient's age to complete this topic Pneumococcal Immunization Combined Aged Out No longer eligible based on patient's age to complete this topic Rotavirus Immunization Aged Out No lo nger eligible based on patient's age to complete this topic
--- OUTSIDE RECORDS SUMMARY | 2024-09-28 06:44 | XMS_ITS | Encounter Summary ---
Author Organization [facility] Address [address] [place] [address] Care Team Providers Care Director Cardiac Name Role Phone Meghan Workman MD Primary Care Provider [phone] Encounter Details Date Type Department Care Team (Late st Contact Info) Description 09/21/2024 Results Follow-Up [facility] at [facility] [employer] [place] [address] [place] [address] Shi Thomas ANP [address] [facility] [address] [place] [address] [place] [address] HEMOGLOBIN A1C, MICROALBUMIN/CREATIN INE RATIO, RANDOM UR, LIPID PANEL, Additional followed-up results: 5 Social History Tobacco Use Types Packs/Day Years Used Date Smoking Tobacco: Never Smokeless Tobacco: Never Alcohol Use Standard Drinks/Week Comments No 0 (1 standard drink = 0.6 oz pur e alcohol) Comments No Sex and Gender Information Value Date Recorded Sex Assigned at Not on file 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 Dsicussed at OV. Repeat LFT today. Consider start lipitor, but reassess lft first. documented in this encounter Plan of Treatment Upcoming Encounters Date Type Department Care Team (Late st Contact Info) Description 03/21/2025 8:30 AM CDT Office Visit [facility] at [facility] [employer] [place] [address] [place] [address] Shi Thomas, ANP [address] [place] [address] documented as of this encounter Visit Diagnoses Not on filedocumented in this encounter Additional Health Concerns Assessment Noted Time PHQ-9 Depression Total Score: 2 09/22/19 25 10:00 AM CDT documented as of this encounter Care Teams Director Cardiac Relationship Specialty Start Date End Date Meghan Workman MD [address] [place] [address] PCP - General Internal Medicine 11/18/23 documented as of this encounter
--- OUTSIDE RECORDS SUMMARY | 2024-09-28 06:44 | XMS_ITS | Clinical Summary ---
Author Organization [facility] Address [address] [place] [id number] Phone Care Team Providers Care Battery Charger Conveyor Line Name Role Phone Dickson Forrest MD Primary Care Provider [phone] Allergies Active Allergy Reactions Criticality Noted Date Comments Ciprofloxacin Diarrhea Low 04/16/2021 Codeine Nausea And Vomiting 06/24/2017 Sulfa Antibiotics Itching 06/24/2017 Medications methylphenidate (RITALIN) 10 MG tablet 1 tab/cap bid 11/21/2014 Active lisinopril (PRINIVIL,ZESTR IL) 40 MG tablet Take 40 mg by mouth daily. 08/31/2018 Active estrogens, conjugated,-met hylTESTOSTERone (EEMT,COVARYX) 1.25-2.5 MG per tablet 09/10/2019 Active ABSORICA LD 8 MG capsule 10/28/2019 Active amphetamine-dex troamphetamine XR (ADDERALL XR) 15 MG 24 hr capsule TAKE 1 CAPSULE BY MOUTH EVERY MORNING NEEDED 01/15/2021 Active Premarin vaginal cream 02/02/2021 Activ e hydroCHLOROthia zide (HYDRODIURIL) 25 MG tablet Take 25 mg by mouth daily 01/30/2021 Active atomoxetine (STRATTERA) 25 MG capsule Take 25 mg by mouth 1 (one) time each day in the morning 01/15/2021 Active Acetaminophen Extra Strength 500 MG tablet 06/05/2021 Activ e buPROPion SR (WELLBUTRIN SR) 200 MG 12 hr tablet 04/16/2021 Active busPIRone (BUSPAR) 30 MG tablet Take 30 mg by mouth 2 (two) times a day 03/26/2021 Active docusate sodium (COLACE) 100 MG capsule 06/05/2021 Active Vyvanse 40 MG capsule TAKE 1 CAPSULE BY MOUTH EVERY MORNING NEEDED 05/30/2021 Active oxyCODONE (ROXICODONE) 5 MG immediate release tablet 06/05/2021 Acti ve sertraline (ZOLOFT) 25 MG tablet 09/12/2021 Active hydrOXYzine (ATARAX) 25 MG tablet Take 25 mg by mouth every 8 hours as needed 07/11/2021 Active busPIRone (BUSPAR) 15 MG tablet 11/20/2021 Active desvenlafaxine (PRISTIQ) 50 MG 24 hr tablet 02/25/2022 Active levETIRAcetam (KEPPRA) 500 MG tablet 12/17/2021 Active sertraline (ZOLOFT) 50 MG tablet Take 50 mg by mouth 1 (one) time each day 11/20/2021 Active Qelbree 200 MG capsule sustained-relea se 24 hr TAKE 1 CAPSULE BY MOUTH DAILY FOR 2 WEEKS 01/17/2022 Active Active Problems Problem Noted Date Diagnosed Date COVID-19 11/14/2021 Adult attention deficit hyperactivity disorder 0 07/23/2021 History of gynecological disorder 07/23/2021 History of nephrectomy 07/23/2021 Marijuana user 07/23/2021 Seizure 07/18/2021 Benign hypertension 07/11/2021 Recurrent major depression in full remission 01/2022 Mixed hyperlipidemia 03/09/2018 Chronic kidney disease, stage 3 (moderate) 11/08 Major depressive disorder Attention-deficit hyperactivity disorder Chronic kidney disease stage 3 Immunizations Immunization Administration Dates Next Due Pfizer Sars-cov-2 Vaccination 09/18/2020, 021 Family History Medical History Relation Comments Kidney disease Neg Hx Kidney stone Neg Hx Social History Tobacco Use Types Packs/Day Years Used Date Smoking Tobacco: Never Smokeless Tobacco: Never Alcohol Use Standard Drinks/Week Comments Yes 0 (1 standard drink = 0.6 oz pure alcohol) Alcoholic Drinks/day: social use Comments Unknown Sex and Gender Information Value Date Recorded Sex Assigned at Not on file Legal Sex Female 7:15 AM MST Gender Identity Not on file Sexual Orientation Not on file Last Filed Vital Signs Vital Sign Reading Time Taken Comments Blood Pressure 130/70 02/27/2022 8:41 AM CDT Pulse - - Temperature 36.3 C (97.3 F) 02/27/2022 8:41 AM CDT Respiratory Rate 18 02/27/2022 8:41 AM CDT Oxygen Saturation - - Inhaled Oxygen Concentration - - Weight 65.8 kg (145 lb) 02/27/2022 8:41 AM CDT Height 170.2 cm (5' 7 ) 02/27/2022 8:41 AM CDT Body Mass Index 22.71 02/27/2022 8:41 AM CDT Plan of Treatment Health Maintenance Due Date Last Done Comments COVID-19 Vaccine (2023- 5 season) 2024 06/05/2021, 09/18/2020, 08/28/2020 Influenza Vaccine (Season Ended) 2025 Insurance [employer] Care Teams Battery Charger Conveyor Line Relationship Specialty Start Date End Date Dickson Forrest MD [address] [place] [id number] PCP - General 09/06/18
--- OUTSIDE RECORDS SUMMARY | 2024-09-28 06:44 | XMS_ITS | Encounter Summary ---
Author Organization [facility] Address [address] [place] [address] Care Team Providers Care Clinical Informatics Specialist Name Role Phone Meghan Workman MD Primary Care Provider [phone] Reason for Referral * Radiology Services (Urgent) - Authorized Specialty Diagnoses / Procedures Referred By Contac t Referred To Contact Diagnoses Elevated liver transaminase level Procedures US ABDOMEN LIMITED [place] ANP [address] [address] [facility] [address] [place] [address] Phone: tel: fax: Referral ID Status Reason Start Date Expiration Date V isits Requested Visits Authorized [id number] Authorized 09/27/2024 10/28/2025 1 1 Reason for Visit * Reason Onset Date Comments Follow Up 09/27/2024 Results 09/27/2024 Encounter Details Date Type Department Care Team (Late st Contact Info) Description 09/27/[address] 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 8 hour fast. Patient is aware. * Telephone Encounter - Shi Thomas ANP - 09/27/2024 7:12 AM CDT Called pt. Liver enzymes now even more elevated. She feels well without abd pain, nausea, vomiting, fever, chills, jaundice. Additional labs needed. Also US abdomen for liver and GB. - stat. Agrees to come to clinic today for repeat labs. Assist pt with set up of stat US that can be done in next 1-3 days. documented in this encounter Plan of Treatment Upcoming Encounters Date Type Department Care Team (Late st Contact Info) Description 03/21/2025 8:30 AM CDT Office Visit [facility] [address] [place] [address] Shi Thomas ANP [address] [facility] [address] [place] [address] Pending Results Name Type Priority Associated Diagnoses Date /Time BASIC METABOLIC PANEL Lab Routine Elevated liver [...] liver transaminase level 09/27/2024 9:39 AM CDT HEPATIC FUNCTION PANEL Lab Routine Elevated liver transaminase level 09/27/2024 9:39 AM CDT Scheduled Orders Name Type Priority Associated Diagnoses Orde r Schedule US ABDOMEN LIMITED Imaging Stat Elevated liver transaminase level 1 Occurrences starting 09/27/2024 until 09/27/2025 BASIC METABOLIC PANEL Lab Routine Elevated liver transaminase level Expected: 09/27/2024, Expires: 09/27/2025 MONONUCLEOSIS SCREEN Lab Routine Elevated liver transaminase level Expected: 09/27/2024, Expires: 09/27/2025 PROTIME-INR Lab Routine Elevated liver transaminase level Expected: 09/27/2024, Expires: 09/27/2025 LIPID PANEL Lab Routine Elevated liver transaminase level Expected: 09/27/2024, Expires: 09/27/2025 IRON, TIBC, AND PERCENT SATURATION Lab Routine Elevated liver transaminase level Expected: 09/27/2024, Expires: 09/27/2025 FERRITIN Lab Routine Elevated liver transaminase level Expected: 09/27/2024, Expires: 09/27/2025 HEPATITIS C ANTIBODY W REFLEX Lab Routine Elevated liver transaminase level Expected: 09/27/2024, Expires: 09/27/2025 HEPATITIS B SURFACE AB, QUAL Lab Routine Elevated liver transaminase level Expected: 09/27/2024, Expires: 09/27/2025 HEPATITIS B SURFACE ANTIGEN Lab Routine Elevated liver transaminase level Expected: 09/27/2024, Expires: 09/27/2025 CERULOPLASMIN Lab Routine Elevated liver transaminase level Expected: 09/27/2024, Expires: 09/27/2025 IGG Lab Routine Elevated liver transaminase level Expected: 09/27/2024, Expires: 09/27/2025 NADER SCREEN W/REFLEX Lab Routine Elevated liver transaminase level Expected: 09/27/2024, Expires: 09/27/2025 HEPATIC FUNCTION PANEL Lab Routine Elevated liver transaminase level Expected: 09/27/2024, Expires: 09/27/2025 documented as of this encounter Results * (ABNORMAL) CBC WITH DIFFERENTIAL (09/27/2024 9:39 AM CDT) [facility] WBC 6.9 3.8 - 10.8 Thousand/ uL [facility] RBC 5.28(H) 3.80 - 5.10 Million/u L [facility] HEMOGLOBIN 16.4(H) 11.7 - 15.5 g/dL [facility] HEMATOCRIT 50.5(H) 35.0 - 45.0 % [facility] MCV 95.6 80.0 - 100.0 fL [facility] MCH 31.1 27.0 - 33.0 pg [facility] MCHC 32.5 32.0 - 36.0 g/dL [facility] Comment: For adults, a slight decrease in the calculated MCHC value (in the range of 30 to 32 g/dL) is most likely not clinically significant; however, it should be interpreted with caution in correlation with other red cell parameters and the patient's clinical condition. RDW 12.8 11.0 - 15.0 % [facility] PLATELETS 355 140 - 400 Thousand/ uL [facility] MPV 10.3 7.5 - 12.5 fL [facility] NEUTROPHIL ABSOLUTE 4,147 1,500 - 7,800 cells/uL [facility] LYMPHOCYTE ABSOLUTE 2,042 850 - 3,900 cells/uL [facility] MONOCYTE ABSOLUTE 317 200 - 950 cells/uL [facility] EOSINOPHIL ABSOLUTE 352 15 - 500 cells/uL [facility] BASOPHILS ABSOLUTE 41 0 - 200 cells/uL [facility] NEUTROPHIL 60.1 % [facility] LYMPHOCYTES 29.6 % [facility] MONOCYTE 4.6 % [facility] EOSINOPHILS 5.1 % [facility] BASOPHILS 0.6 % [facility] Comment: Test Performed at: [place] [address] [place] [address] Nancy Babin Blood 09/27/2024 9:39 AM CDT 09/28/2024 12:38 AM CDT us Shi Thomas ANP HEMATOLOGY ORDERABLES Final Result [facility] [phone] [place] [address] [place] [address] documented in this encounter Visit Diagnoses Diagnosis Elevated liver transaminase level- Primary Need for hepatitis C screening test Special screening examination for other specified viral diseases documented in this encounter Additional Health Concerns Assessment Noted Time PHQ-9 Depression Total Score: 2 09/22/19 25 10:00 AM CDT documented as of this encounter Care Teams Clinical Informatics Specialist Relationship Specialty Start Date End Date Meghan Workman MD [address] [place] [address] [facility] [address] PCP - General Internal Medicine 11/18/23 documented as of this encounter
--- OUTSIDE RECORDS SUMMARY | 2024-09-28 06:44 | XMS_ITS | Clinical Summary ---
Author Organization [facility] [employer] [place] Address [address] [address] Care Team Providers Care Torch Cutter Name Role Phone Meghan Workman MD Primary Care Provider [phone] Allergies Active Allergy Reactions Criticality Noted Date Comments Ciprofloxacin Diarrhea Low 04/16/2021 Codeine Nausea and Vomiting Low 06/24/2017 Nsaids (Non-Steroidal Anti-Inflammatory Drug) Other (See Comments) 01/29/2023 Patient has low gfr Sulfa (Sulfonamide Antibiotics) Itching Low 06/24/2017 Other reaction(s): Other (See comments) causes sever vaginal yeast infection Medications polyethylene glycol 3350 (MIRALAX) 17 gram/dose Powder Take 17 Grams by mouth 1 time daily as needed for Constipation. Dissolve in 8 ounces of fluid and drink entire liquid Active desvenlafaxine (PRISTIQ) 50 mg Extended Release 24 hour tablet Take 1 Tablet by mouth daily. 2 Active cholecalciferol , vitamin D3, 5,000 unit Take 1 Tablet by mouth daily. 2 Active conjugated estrogens (PREMARIN) 0.625 mg/gram vaginal cream 2 Active est estrogens-methy lTESTOSTERone (ESTRATEST) 1.25-2.5 mg tablet Take 1 Tablet by mouth daily. 3 Active dextroamphetami ne-amphetamine 50 mg capsule, ER triphasic 24 hr Take 1 Capsule by mouth daily. 4 Active ALPRAZolam (XANAX) 0.5 mg tablet TAKE 1/2 (ONE-HALF) TO ONE TABLET BY MOUTH ONCE DAILY NEEDED FOR ANXIETY/PANIC 4 Active fexofenadine (PAPI) 180 mg tablet Take 1 Tablet (180 mg) by mouth daily. For allergies 90 Tablet 4 Active propranoloL (INDERAL LA) 80 mg Long Acting 24 hour capsuleIndicati ons:Mild anxiety Take 1 Capsule (80 mg) by mouth daily. 90 Capsule 3 4 Active cetirizine (ZyrTEC) 10 mg tablet Take 1 Tablet (10 mg) by mouth daily. 90 Tablet 5 Active hydroCHLOROthia zide 12.5 mg tabletIndicatio ns:HTN (hypertension), benign Take 1 Tablet (12.5 mg) by mouth daily in the morning. 90 Tablet 5 Active lisinopriL (PRINIVIL) 30 mg tabletIndicatio ns:HTN (hypertension), benign Take 1 Tablet (30 mg) by mouth daily. 90 Tablet 5 Active diclofenac sodium (VOLTAREN) 1 % gel Apply 2 Grams to affected area 4 times daily. 100 Gram 5 Active cetirizine (ZyrTEC) 10 mg tablet Take 1 Tablet (10 mg) by mouth daily. 90 Tablet 4 09/16/19 25 Discontinu ed(Reorder ) lisinopriL (PRINIVIL) 30 mg tabletIndicatio ns:HTN (hypertension), benign Take 1 Tablet (30 mg) by mouth daily. 90 Tablet 4 09/16/19 25 Discontinu ed(Reorder ) hydroCHLOROthia zide 12.5 mg tabletIndicatio ns:HTN (hypertension), benign Take 1 Tablet (12.5 mg) by mouth daily in the morning. 90 Tablet 4 09/16/19 25 Discontinu ed(Reorder ) lisinopriL (PRINIVIL) 30 mg tabletIndicatio ns:HTN (hypertension), benign Take 1 Tablet (30 mg) by mouth daily. 90 Tablet 5 09/17/19 25 Discontinu ed(Reorder ) lisinopriL (PRINIVIL) 30 mg tabletIndicatio ns:HTN (hypertension), benign Take 1 Tablet (30 mg) by mouth daily. 30 Tablet 5 09/22/19 25 Discontinu ed(Reorder ) Active Problems Problem Noted Date Diagnosed Date Mixed hyperlipidemia 09/21/2024 Prediabetes 09/30/2023 S/p nephrectomy 12/06/2022 Overview (08/29/2023): Past history endometriosis s/p EDWARD/ BSO 2007. R nephrectomy due to abscess from post-op hematoma. 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 Per 2021 notes: To help reduce the rate of kidney deterioration: Control BP: stable Control LDL cholesterol: on simvastatin Use GARRETT/ARB: on lisinopril Low protein diet: proteinuria controlled Encounters Date Type Department Care Team Description 09/27/2024 7:20 AM CDT Clinical Support [facility] [place] [address] [place] [phone] Elevated liver transaminase level 09/27/2024 Results Follow-Up [place] [address] [id number] Shi Thomas, DANUTA HEPATIC FUNCTION PANEL, CK 09/27/2024 Telephone [place] [address] [place] [id number] Shi Thomas ANP Follow Up; Results 09/21/2024 10:00 AM CDT Office Visit [place] [address] [place] [phone] Shi Thomas, DANUTA Chronic pain of left thumb (Primary Dx); Prediabetes; Mixed hyperlipidemia; HTN (hypertension), benign; Stage 3a chronic kidney disease (CMS/HCC); S/p nephrectomy; Elevated liver enzymes 09/21/2024 Results Follow-Up [facility] [employer] [facility] [address] [place] [address] Shi Thomas, DANUTA HEMOGLOBIN A1C, MICROALBUMIN/CREATIN INE RATIO, RANDOM UR, LIPID PANEL, Additional followed-up results: 5 09/17/2024 7:20 AM CDT Clinical Support [facility] [employer] [place] [address] [place] [address] Prediabetes; HTN (hypertension), benign; Dysuria; Vitamin D deficiency 09/16/2024 2:00 PM CDT Procedure visit [facility] [employer] [place] [address] [place] [address] Issue of repeat prescription for medication (Primary Dx) 09/16/2024 Refill [facility] [employer] [place] [address] [place] [address] Shi Thomas, DANUTA HTN (hypertension), benign 09/15/2024 Refill [facility] [employer] [place] [address] [place] [id number] Meghan Workman MD HTN (hypertension), benign 09/14/2024 External Device Data STL ABSTRACTION Provider, Abstract 08/18/2024 External Device Data ST[place] ABSTRACTION Provider, Abstract 07/20/2024 External Device Data ST[place] ABSTRACTION Provider, Abstract 07/06/2024 External Device Data ST[place] ABSTRACTION Provider, Abstract from Last 3 Months Immunizations Immunization Administration Dates Next Due (PFIZER JEREMY)(12 YR UP PRIMA RY SERIES) COVID-19 VACCINE - EMERGENCY USE AUTHORIZATION, MRNA, JEREMY(PF) 30 MCG/0.3 ML IM SUSP 09/18/2020,08/28/2020 (PFIZER)(12 YR UP) COVID-19 VACCINE - EMERGENCY USE AUTHORIZATION, MRNA, [id number](PF) 30 MCG/0.3 ML IM SUSP 09/18/2020,08/28/2020 Family History Medical History Relation Name Comments No Known Problems Brother 1 No Known Problems Brother 2 Hypertension Father Colon Polyps Maternal Grandfather Heart Failure Maternal Grandmother High Cholesterol Mother Kidney Disease Mother Other Mother multiple myelom a Lung Cancer Paternal Grandfather Stroke Paternal Grandmother Relation Name Status Comments Brother 1 Alive Brother 2 Alive Father Alive Maternal Grandfather Maternal Grandmother Mother Paternal Grandfather Paternal Grandmother Social History Tobacco Use Types Packs/Day Years Used Date Smoking Tobacco: Never Smokeless Tobacco: Never Tobacco Cessation:Counseling Given: Not Answered Alcohol Use Standard Drinks/Week Comments No 0 (1 standard drink = 0.6 oz pur e alcohol) Comments No Sex and Gender Information Value Date Recorded Sex Assigned at Not on file 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 Gender Identity Not on file Sexual Orientation Not on file Last Filed Vital Signs Vital Sign Reading Time Taken Comments Blood Pressure 130/82 09/21/2024 10:05 AM CDT Pulse 65 09/21/2024 10:05 AM CDT Temperature 36.8 C (98.3 F) 09/21/2024 10:05 AM CDT Respiratory Rate 16 09/21/2024 10:05 AM CDT Oxygen Saturation 97% 09/21/2024 10:05 AM CDT Inhaled Oxygen Concentration - - Weight 74.8 kg (165 lb) 09/21/2024 10:05 AM CDT Height 172.7 cm (5' 8 ) 09/21/2024 10:05 AM CDT Body Mass Index 25.09 09/21/2024 10:05 AM CDT Plan of Treatment Upcoming Encounters Date Type Department Care Team (Late st Contact Info) Description 03/21/2025 8:30 AM CDT Office Visit [facility] [employer] [place] [address] [place] [phone] Shi Thomas, ANP [address] [place] [address] Health Maintenance Due Date Last Done Comments DTAP/TDAP/TD VACCINES (1 - Tdap) 2000 HEPATITIS B VACCINES (1 of 3 - 19+ 3-dose series) 2000 BREAST CANCER SCREENING 2021 INFLUENZA VACCINE (#1) 2024 COVID-19 Vaccine ( season) 2024 06/05/2021, 09/18/2020, 09/18/2020, Additional history exists Pre-Diabetes and Diabetes Screening 09/18/2027 09/17/2024, 09/26/2023, 06/11/2022, Additional history exists HPV VACCINES Aged Out No longer eligi ble based on patient's age to complete this topic Procedures Procedure Name Priority Date/Time Associated Diagnosis Comments CBC WITH DIFFERENTIAL Routine 09/27/2024 9:39 AM CDT Elevated liver transaminase level CK Routine 09/21/2024 11:01 AM CDT Stage 3a chronic kidney disease (CMS/HCC) S/p nephrectomy HEPATIC FUNCTION PANEL Routine 09/21/2024 11:01 AM CDT Stage 3a chronic kidney disease (CMS/HCC) S/p nephrectomy Elevated liver enzymes VITAMIN D 25 HYDROXY Routine 09/17/2024 7:29 AM CDT Vitamin D deficiency TSH Routine 09/17/2024 7:29 AM CDT HTN (hypertension), benign CBC WITH DIFFERENTIAL Routine 09/17/2024 7:29 AM CDT HTN (hypertension), benign COMPREHENSIVE METABOLIC PANEL Routine 09/17/2024 7:29 AM CDT HTN (hypertension), benign LIPID PANEL Routine 09/17/2024 7:29 AM CDT HTN (hypertension), benign MICROALBUMIN/CREATINI NE RATIO, RANDOM UR Routine 09/17/2024 7:29 AM CDT HTN (hypertension), benign HEMOGLOBIN A1C Routine 09/17/2024 7:29 AM CDT Prediabetes URINE CULTURE Routine 09/17/2024 7:29 AM CDT Dysuria from Last 3 Months Results * (ABNORMAL) CBC WITH DIFFERENTIAL (09/27/2024 9:39 AM CDT) Only the most recent of2 resultswithin the time period is included. WBC 6.9 3.8 - 10.8 Thousand/ uL [...] 200 - 950 cells/uL [facility] EOSINOPHIL ABSOLUTE 352 15 - 500 cells/uL [facility] BASOPHILS ABSOLUTE 41 0 - 200 cells/uL [facility] NEUTROPHIL 60.1 % [facility] LYMPHOCYTES 29.6 % [facility] MONOCYTE 4.6 % [facility] EOSINOPHILS 5.1 % [facility] BASOPHILS 0.6 % [facility] Comment: Test Performed at: [facility] [address] [place] [address] Rosamaria-Kisha Thi Vo Blood 09/27/2024 9:39 AM CDT 09/28/2024 12:38 AM CDT Shi Thomas ANP HEMATOLOGY ORDERABLES Final Result [facility] [phone] [place] [address] [address] [address] * CK (09/21/2024 11:01 AM CDT) Pathologist [facility] CK 50 20 - 239 U/L [facility] Comment: Test Performed at: [place] [address] [address] [place] [address] RosamariaKisha [facility] Blood 09/21/2024 11:0 1 AM CDT 09/22/2024 2:48 AM CDT Shi Thomas ANP CHEMISTRY ORDERABLES Final R esult Performing Organization Address City/[facility] Code Phone Number [facility] [phone] [place] [address] [address] [address] * (ABNORMAL) HEPATIC FUNCTION PANEL (09/21/2024 11:01 AM CDT) Pathologist [facility] TOTAL PROTEIN 7.5 6.1 - 8.1 g/dL [facility] ALBUMIN 4.1 3.6 - 5.1 g/dL [facility] GLOBULIN 3.4 1.9 - 3.7 g/dL (calc) [facility] ALBUMIN/GLOBULIN RATIO 1.2 1.0 - 2.5 (calc) [facility] BILIRUBIN TOTAL 0.8 0.2 - 1.2 mg/dL [facility] BILIRUBIN DIRECT 0.2 < OR = 0.2 mg/dL [facility] BILIRUBIN INDIRECT 0.6 0.2 - 1.2 mg/dL (calc) [facility] ALKALINE PHOSPHATASE 76 31 - 125 U/L [facility] AST 145(H) 10 - 30 U/L [facility] ALT 239(H) 6 - 29 U/L [facility] Comment: Test Performed at: [place] [address] [address] [place] [address] [facility] Blood 09/21/2024 11:0 1 AM CDT 09/22/2024 2:48 AM CDT Shi Thomas ANP CHEMISTRY ORDERABLES Final R esult [facility] [phone] [facility] [address] [address] [place] [address] * (ABNORMAL) MICROALBUMIN/CREATININE RATIO, RANDOM UR (09/17/2024 7:29 AM CDT) CREATININE, URINE 59 20 - 275 mg/dL [facility] ALBUMIN, URINE 38.8 See Note: mg/dL [facility] Comment: Reference Range: Reference Range Not established Verified by repeat analysis. ALB/CREAT RATIO, URINE 658(H) <30 mg/g creat [facility] Comment: The ADA defines abnormalities in albumin excretion as follows: Albuminuria Category Result (mg/g creatinine) Normal to Mildly increased <30 Moderately increased 30-299 Severely increased > OR = 300 The ADA recommends that at least two of three specimens collected within a 3-6 month period be abnormal before considering a patient to be within a diagnostic category. Test Performed at: [place] [facility] [address] [place] [address] RosamariaKisha Babin MD Urine URINE SPECIMEN OBTAINED BY CLEAN CATCH PROCEDURE / Unknown 09/17/2024 7:29 AM CDT 09/18/2024 3:25 AM CDT Shi Thomas ANP URINE ORDERABLES Final Resul t Performing Organization Address City/State/ZIP Co sd Phone Number [facility] [phone] [facility] [address] [place] [address] * VITAMIN D 25 HYDROXY (09/17/2024 7:29 AM CDT) VITAMIN D, 25 OH, TOTAL 88 30 - 100 ng/mL [facility] Comment: Vitamin D Status 25-OH Vitamin D: Deficiency: <20 ng/mL Insufficiency: 20 - 29 ng/mL Optimal: > or = 30 ng/mL For 25-OH Vitamin D testing on patients on D2-supplementation and patients for whom quantitation of D2 and D3 fractions is required, the [facility](TM) 25-OH VIT D, (D2,D3), LC/MS/MS is recommended: order code 43176 (patients >2yrs). See Note 1 Note 1 For additional information, please refer to http://education.dynaTrace software/faq/XLJ332 (This link is being provided for informational/ educational purposes only.) Test Performed at: [facility] [address] [place] [address] Nancy Babin MD Blood 09/17/2024 7:29 AM CDT 09/18/2024 4:27 AM CDT Shi Thomas ANP CHEMISTRY ORDERABLES Final R esult [facility] [phone] [facility] [address] [place] [address] * URINE CULTURE (09/17/2024 7:29 AM CDT) URINE CULTURE SEE NOTE [facility] Comment: CULTURE, URINE, ROUTINE Micro Number: [id number] Test Status: Final Specimen Source: Urine, clean catch Specimen Quality: Adequate Result: No Growth Test Performed at: [facility] [facility] [address] [address] [address] Nancy Babin Urine URINE SPECIMEN OBTAINED BY CLEAN CATCH PROCEDURE / Unknown 09/17/2024 7:29 AM CDT 09/18/2024 2:26 AM CDT Shi Thomas ANP MICROBIOLOGY - GENERAL ORDER VERONICA Final Result [facility] [phone] [place] [address] [address] [address] * TSH (09/17/2024 7:29 AM CDT) TSH 2.20 mIU/L [facility] Comment: Reference Range > or = 20 Years 0.40-4.50 Ranges First trimester 0.26-2.66 Second trimester 0.55-2.73 Third trimester 0.43-2.91 Test Performed at: [facility] [address] [place] [address] Nancy Babin MD Blood 09/17/2024 7:29 AM CDT 09/18/2024 4:27 AM CDT us Shi Thomas [facility] CHEMISTRY ORDERABLES Final R esult [facility] [phone] [address] * (ABNORMAL) HEMOGLOBIN A1C (09/17/2024 7:29 AM CDT) HEMOGLOBIN A1C 5.8(H) <5.7 % [facility] Comment: For someone without known diabetes, a hemoglobin A1c value between 5.7% and 6.4% is consistent with prediabetes and should be confirmed with a follow-up test. For someone with known diabetes, a value <7% indicates that their diabetes is well controlled. A1c targets should be individualized based on duration of diabetes, age, comorbid conditions, and other considerations. This assay result is consistent with an increased risk of diabetes. Currently, no consensus exists regarding use of hemoglobin A1c for diagnosis of diabetes for children. ESTIMATED AVERAGE GLUCOSE (MG/DL) 120 mg/dL [facility] ESTIMATED AVERAGE GLUCOSE (MMOL/L) 6.6 mmol/L [facility] Comment: Test Performed at: [place] [facility] [address] [facility] [place] [place] [address] Nancy Babin MD Blood 09/17/2024 7:29 AM CDT 09/18/2024 4:27 AM CDT us Shi Thomas ANP CHEMISTRY ORDERABLES Final R esult [facility] [phone] [facility] [address] [address] [address] * (ABNORMAL) LIPID PANEL (09/17/2024 7:29 AM CDT) CHOLESTEROL 313(H) <200 mg/dL [facility] HDL 35(L) > OR = 50 mg/dL [facility] TRIGLYCERIDE 143 <150 mg/dL [facility] LDL CALCULATED 248(H) mg/dL (calc) [facility] Comment: LDL-C levels > or = 190 mg/dL may indicate familial hypercholesterolemia (FH). Clinical assessment and measurement of blood lipid levels should be considered for all first degree relatives of patients with an FH diagnosis. LDL Cholesterol (LDL-C) levels > or = 300 mg/dL may indicate homozygous familial hypercholesterolemia (HoFH). Untreated, these extremely high LDL-C levels can result in premature CV events and mortality. Patients should be identified early and provided appropriate interventions to reduce the cumulative LDL-C burden from . For questions about testing for familial hypercholesterolemia, please call [facility] Client Services at [email or web address].[facility].INFO. Cici Rodriguez, et al. J National Lipid Association Recommendations for Patient-Centered Management of Dyslipidemia: Part 1 Journal of Clinical Lipidology 2015;9(2), 129-169. Jesus Lee. et al. (2014). Homozygous familial hypercholesterolaemia: new insights and guidance for clinicians to improve detection and clinical management. Heart Journal, 35(32), 0669-4642. Reference range: <100 Desirable range <100 mg/dL for primary prevention; <70 mg/dL for patients with CHD or diabetic patients with > or = 2 CHD risk factors. LDL-C is now calculated using the Pawan-Pinky calculation, which is a validated novel method providing better accuracy than the Friedewald equation in the estimation of LDL-C. Pawan HIDALGO et al. JULIANA. 2013;310(19): 3680-5605 (http://education.dynaTrace software/faq/LBY929) CHOL/HDL RATIO 8.9(H) <5.0 (calc) [facility] NON-HDL CHOLESTEROL 278(H) <130 mg/dL (calc) [facility] Comment: Non-HDL level > or = 220 is very high and may indicate genetic familial hypercholesterolemia (FH). Clinical assessment and measurement of blood lipid levels should be considered for all first-degree relatives of patients with an FH diagnosis. For patients with diabetes plus 1 major ASCVD risk factor, treating to a non-HDL-C goal of <100 mg/dL (LDL-C of <70 mg/dL) is considered a therapeutic option. Test Performed at: [place] [facility] [address] [facility] [place] [address] Nancy Babin MD Blood 09/17/2024 7:29 AM CDT 09/18/2024 4:27 AM CDT us Shi Thomas [facility] CHEMISTRY ORDERABLES Final R esult [facility] [phone] [facility] [address] [place] [address] * (ABNORMAL) COMPREHENSIVE METABOLIC PANEL (09/17/2024 7:29 AM CDT) GLUCOSE 97 65 - 99 mg/dL [facility] Comment: Fasting reference interval BUN 13 7 - 25 mg/dL [facility] CREATININE 1.44(H) 0.50 - 0.99 mg/dL [facility] EGFR 46(L) > OR = 60 mL/min/1.7 3m2 [facility] BUN/CREAT RATIO 9 6 - 22 (calc) [facility] SODIUM 138 135 - 146 mmol/L [facility] POTASSIUM 3.8 3.5 - 5.3 mmol/L [facility] CHLORIDE 102 98 - 110 mmol/L [facility] CO2 27 20 - 32 mmol/L [facility] CALCIUM 8.9 8.6 - 10.2 mg/dL [facility] TOTAL PROTEIN 7.2 6.1 - 8.1 g/dL [facility] ALBUMIN 3.9 3.6 - 5.1 g/dL [facility] GLOBULIN 3.3 1.9 - 3.7 g/dL (calc) [facility] ALBUMIN/GLOBULIN RATIO 1.2 1.0 - 2.5 (calc) [facility] BILIRUBIN TOTAL 0.8 0.2 - 1.2 mg/dL [facility] ALKALINE PHOSPHATASE 75 31 - 125 U/L [facility] AST 66(H) 10 - 30 U/L [facility] ALT 146(H) 6 - 29 U/L [facility] Comment: Test Performed at: [facility] [address] [place] [address] Nancy Babin MD Blood 09/17/2024 7:29 AM CDT 09/18/2024 4:27 AM CDT us Shi Thomas [facility] CHEMISTRY ORDERABLES Final R esult [facility] [phone] [facility] [address] [place] [address] from Last 3 Months Insurance [facility] OPEN ACCESS * Guarantor: [employer] Account Type Relation to Patient Date of Phone Billing Address Corporate Employer ATTN: ARABELLA SMITH [address] [address] Care Teams Torch Cutter Relationship Specialty Start Date End Date Meghan Workman MD [address] [place] [phone] PCP - General Internal Medicine 11/18/23
== END 2024-09-28 06:39 | disposition home or self-care (01) ==
PROVIDERS: PCP Nurse Practitioner Adult Health; Visit Provider Nurse Practitioner Adult Health
DX: R74.01 Elevation of levels of liver transaminase levels (principal); K80.20 Calculus of gallbladder without cholecystitis without obstruction
CPT/HCPCS: 76705